=== PATIENT | female | born 2000 | race Caucasian/White ===

== ENCOUNTER → 2021-04-01 11:50 | Outpatient (BNVA) | payer OTHER, SELFPAY | PROVIDERS: Family Provider Family Medicine; PCP Nurse Practitioner Family; Visit Provider Family Medicine | DX: R30.0 Dysuria (principal); R31.9 Hematuria, unspecified; N39.0 Urinary tract infection, site not specified | CPT/HCPCS: 81003; 87077; 87086; 87184 ==

== ENCOUNTER 2022-12-24 08:07 | Outpatient (CLI) | payer OTHER, SELFPAY ==
[2022-12-24] VITALS (17 sets, daily range): BP systolic 104–161; BP diastolic 56–86; PULSE 84–146; RESP 16; TEMP 36.1; O2SAT 99; BMI 24.3
[2022-12-24 08:49] LABS: Protein Urine Neg (Negative); Urine Appearance Clear (CLEAR); Urine Color Yellow (Yellow); pH Urine 5 (5-7)
[2022-12-24 08:50] LABS: Bilirubin Urine 1+ (Negative); Blood Urine Neg (Negative); Glucose Urine UA 1+ (Normal); Ketones Urine 3+ (Negative); Nitrate Urine Negative (Negative); Urobilinogen Urine Norm (Negative)
[2022-12-24 08:52] LABS: Add Urine Culture? No; Bacteria Urine 2+ /hpf; Mucus Urine 1+ /hpf; WBC Urine 0-4 /hpf (0-5)
[2022-12-24 08:53] LABS: Leukocyte Esterase Urine Negative (Negative)
[2022-12-24] MEDS: lactated ringers 1,000 ML 999 ML IV (09:08)
[2022-12-24] MEDS: ondansetron 2 mg/ML SDV 2 mL 4 MG IVP (09:09)
[2022-12-24] MEDS: terbutaline 1 mg/mL INJ 0.25 MG SUBCUT (11:10)
== END 2022-12-24 11:50 | disposition home or self-care (01) ==
LOC: OPOB 08:15 → OBGYN 08:16
PROVIDERS: PCP Nurse Practitioner Family; Visit Provider Family Medicine
DX: O21.9 Vomiting of pregnancy, unspecified (principal); Z3A.00 Weeks of gestation of pregnancy not specified; M54.9 Dorsalgia, unspecified; R10.9 Unspecified abdominal pain
CPT/HCPCS: 36415; 59025; 81001; 96372; 96374; 99211; J2405; J3105; J7120

== ENCOUNTER 2023-03-04 22:47 | Outpatient (CLI) | payer OTHER, SELFPAY ==
[2023-03-04 22:45] VITALS: BMI 27.1
[2023-03-04 22:56] VITALS: BP 143/91; PULSE 100
[2023-03-04 23:12] VITALS: BP 122/76; PULSE 79
[2023-03-05 00:53] VITALS: BP 146/87; PULSE 82
[2023-03-05 01:09] VITALS: BP 130/85; PULSE 76
[2023-03-05 01:26] VITALS: BP 147/96; PULSE 93
[2023-03-05 01:42] VITALS: BP 147/96; PULSE 93; RESP 16
== END 2023-03-05 01:42 | disposition home or self-care (01) ==
LOC: OPOB 22:47 → OBGYN 22:48
PROVIDERS: PCP Nurse Practitioner Family; Visit Provider Family Medicine
DX: O47.9 False labor, unspecified (principal); Z3A.00 Weeks of gestation of pregnancy not specified
CPT/HCPCS: 59025; 99211

== ENCOUNTER 2023-03-05 13:02 | Inpatient (IN) | payer OTHER, SELFPAY ==
[2023-03-05] VITALS (98 sets, daily range): BP systolic 103–144; BP diastolic 59–94; PULSE 71–168; RESP 15–18; TEMP 36.6–37.1; O2SAT 92–100; BMI 27.1
[2023-03-05 09:01] LABS: Protein Urine 1+ (Negative); Specific Gravity, Urine 1.025 (1.005-1.030); Urine Appearance Cloudy (CLEAR); Urine Color Dark Yellow (Yellow); pH Urine 5 (5-7)
[2023-03-05 09:02] LABS: Bilirubin Urine 1+ (Negative); Blood Urine 3+ (Negative); Glucose Urine UA Norm (Normal); Ketones Urine 3+ (Negative); Leukocyte Esterase Urine 2+ (Negative); Nitrate Urine Negative (Negative); Urobilinogen Urine 1 mg/dL (Negative)
[2023-03-05 09:05] LABS: Add Urine Culture? Yes; Bacteria Urine 1+ /hpf; WBC Urine >100 /hpf (0-5)
[2023-03-05] MEDS: HYDROcodone-acetaminophen 5-325 mg Tablet 1 TAB PO (10:04)
--- NOTE | 2023-03-05 12:31 | PM.OPHPUD ---
Labor & Delivery H&P Update Date of Procedure: March 05, 2023 Date H&P Performed: 03/01/23 Admission Diagnosis: 23-year-old 1 para 0 at 39 weeks estimated gestational age presenting with contractions Planned procedure: Spontaneous vaginal delivery Other information: The patient is a otherwise healthy 23-year-old 1 female with an estimated gestational age of 39 weeks and 5 days presenting to the hospital for the second time after having increasingly painful consistent contractions. Her cervix was found to be 1 cm. After discussion with the patient regarding the risks and alternatives, we elected to augment her labor with Cytotec 25 mcg. She was also noted to have a urinalysis consistent with a UTI. On exam there was no CVA tenderness. She did have back pain in the SI joint area with contractions. She received Rocephin 1 g IV when we were still deciding whether she would remain in the hospital or not. She has been on GBS protocol and has been on ampicillin since she began making cervical change. The patient's was unremarkable. Her labs were as follows. Her blood type is A-. Her antibody screen was negative. She passed her glucose screen. She is rubella immune. She is GBS positive. Related Problem List Diagnoses (1) 39 weeks gestation of : (2) UTI (urinary tract infection) during : A&P Assessment and plan (1) 39 weeks gestation of : Spontaneous vaginal delivery is anticipated. Status: Acute (2) UTI (urinary tract infection) during : Treated with Rocephin. We will also be on group B strep protocol. Status: Acute
[2023-03-05 13:16] LABS: Basophils % 0.1 %; Eosinophils % 0.1 %; Hematocrit 30.1 % (37.0-47.0); Hemoglobin 9.7 g/dL (11.5-15.3); Lymphocytes # 0.7 10^3/uL (0.8-4.8); Lymphocytes % 4.8 %; Mean Corpuscular HGB Conc 32.2 g/dL (30.0-36.0); Mean Corpuscular Hemoglobin 27.6 pg (28.0-34.0); Mean Corpuscular Volume 85.8 fl (81-99); Mean Platelet Volume 12.2 fL (7.4-10.4); Monocytes # 0.7 10^3/uL (0.2-0.9); Neutrophils # 12.39 10^3/uL (1.8-7.7); Neutrophils % 89.2 %; Nucleated Red Blood Cells % 0 %; Platelet Count 218 10^3/cmm (130-400); Red Blood Count 3.51 10^6/uL (4.1-5.3); Red Cell Distribution Width 12.7 % (12.1-15.1); White Blood Count 13.9 10^3/uL (4.0-10.0)
--- NOTE | 2023-03-05 13:51 | P.ANESASSM_ITS ---
Pre-Anesthetic Assessment Height/Weight: Height 1.57 m Weight 67.132 kg Temp Pulse Resp BP 98.4 F 84 16 127/79 03/05/23 13:49 03/05/23 13:49 03/05/23 13:06 03/05/23 13:49 Familial anesthetic complications: none Was Beta Martha taken within 24 hours: N/A Was Clonidine taken within 24 hours: N/A Social No alcohol and No tobacco Exam alert, oriented x 3, clear to auscultation bilaterally and regular rate & rhythm Airway Submandibular: within normal limits Cervical ROM: within normal limits Mallampati: Class II Dentition: full History/ROS No significant history except as noted Anesthetic Plan ASA status: 2 Anesthesia: Regional (specify below) (Labor epidural) Medications/Allergies Allergies Allergy/AdvReac Type Severity Reaction Status Date / Time No Known Allergies Allergy Verified 04/07/21 13:42 [facility] Anesthesia Female Reproductive History : 1 Data Anesthesia 03/05/23 12:58 Short CBC 03/05/23 Range/Units 12:58 WBC 13.9 H (4.0-10.0) 10^3/uL Hgb 9.7 L (11.5-15.3) g/dL Hct 30.1 L (37.0-47.0) % MCV 85.8 (81-99) fl Plt Count 218 (130-400) 10^3/cmm Neut % (Auto) 89.2 % Neut # (Auto) 12.39 H (1.8-7.7) 10^3/uL Urine 03/05/23 Range/Units 08:13 Urine Color Dark yellow (Yellow) Urine Appearance Cloudy A (CLEAR) Urine pH 5 (5-7) Ur Specific [place] 1.025 (1.005-1.030) Urine Protein 1+ H (Negative) Urine Glucose (UA) Norm (Normal) Urine Ketones 3+ H (Negative) Urine Nitrate Negative (Negative) Urine Bilirubin 1+ H (Negative) Ur Leukocyte Esterase 2+ H (Negative) Urine RBC 5-10 H (0-2) /hpf Urine WBC >100 H (0-5) /hpf Cardiac Studies: No Data to Display
[2023-03-05] MEDS: miSOPROStol 100 mcg tablet 25 MCG VAGINAL ×2 (14:44→20:39)
[2023-03-05] MEDS: fentaNYL 50 mcg/mL INJ 2mL IVP ×2 (16:34→18:43)
[2023-03-05] MEDS: lactated ringers 1,000 ML 999 ML IV ×2 (17:45→19:10)
[2023-03-05] MEDS: ampicillin 2,000 MG in sodium chloride 0.9% (plus) 50 ML 100 MG IV (17:45)
--- NOTE | 2023-03-05 19:44 | P.ANES_ITS ---
Anesthesia Procedures Procedure/Date: 03/05/23 epidural Procedure Narrative: epidural complete, bolus given, epidural pump initiated with SCUBA DIVE TRAINING INSTRUCTOR education given, vitals taken during procedure and satisfactory throughout, patient admits to decrease pain, report of procedure to OB RN Epidural: Time Out Performed: Yes Consents Signed: Procedure Consent Consent: requested by attending/covering physician, from patient, risks and benefits reviewed and patient agrees to proceed Lumbar Level: L3-L4 Epidural position: sitting Epidural procedure: sterile prep of area, 1% lidocaine to numb the area (3 mL), 18 g needle, negative for paresthesia passed, neg for paresthesia, test dose given, 1.5% xylocaine 1:200k epi (5 mL), 0.2% Ropivacaine bolus ml (5 mL), placed PCEA, no systemic response, sterile dressing applied, L.U.D. no apparent complications and 0.2% Ropiavacaine @ mls/hr (13 mL/hr)
--- NOTE | 2023-03-05 22:46 | PC.NURSE ---
This nurse observed bleeding coming through dressing to belly band and turn sheet at this epidural check. Anesthesia was notified.
[2023-03-05] MEDS: ampicillin 1,000 MG in sodium chloride 0.9% (plus) 50 ML 100 MG IV (23:28)
[2023-03-05] MEDS: ondansetron 2 mg/ML SDV 2 mL 4 MG IVP (23:31)
[2023-03-05] MEDS: morphine 4 mg/mL SDV 1 mL 8 MG IM (23:57)
[2023-03-05] MEDS: promethazine 25 mg/mL SDV 1 mL IM (23:58)
[2023-03-06] VITALS (83 sets, daily range): BP systolic 109–138; BP diastolic 55–77; PULSE 79–144; RESP 16; TEMP 36.3–38.2; O2SAT 85–99
[2023-03-06] MEDS: dextrose 5%-lactated ringers 1,000 ML 125 ML IV (00:37)
[2023-03-06] MEDS: ampicillin 1,000 MG in sodium chloride 0.9% (plus) 50 ML 100 MG IV (03:24)
[2023-03-06] MEDS: lidocaine 2% INJ 20 mL INJECTION (05:22)
--- NOTE | 2023-03-06 05:39 | P.PCNOB_ITS ---
Delivery Note: Date of delivery: March 06, 2023 Pre-delivery diagnoses: 23-year-old 1 at 39 weeks estimated gestational age Post-delivery diagnoses: Status post vacuum-assisted vaginal delivery Procedure: Vacuum-assisted vaginal delivery Delivering Physician: Shemar Parra Estimated blood loss (mL): 200 Pre-Delivery Course: The patient presented to the hospital for the second time in 2 days complaining of consistent contractions happening about every 5 minutes. Despite her consistent painful contractions she is not making cervical change. We made a joint decision to augment her labor with Cytotec. She received Cytotec 25 mcg x 2 per vagina. An epidural was placed. Spontaneous rupture of membranes occurred. She progressed to complete. heart tones did demonstrate tachycardia with a baseline around 180 bpm. She continued to show good short- term long-term variability. She had intermittent accelerations as well. Delivery: DELIVERY: The patient progressed to an anterior lip which resolved with pushing. Due to the tachycardia I made the decision to begin pushing. After pushing for over an hour and a half, the mother was beginning fatigue. Persistent tachycardia was also noted. I elected to assist her delivery with a vacuum. A Kiwi vacuum was used to assist in delivery. There were 3 pushes the vacuum was applied with a pressure always in the green zone around 550 mmHg. There were no pop offs. The vacuum pressure was released between contractions. She delivered a female with a weight of 7 pounds 10 ounces with Apgars of 8, 9. The baby was delivered from the CASTRO position and placed on the mother's abdomen. The vacuum was removed as the head was being delivered. The cord was then clamped and cut. There was no nuchal cord. There was no meconium. The placenta and 3 vessel cord were delivered intact shortly thereafter. The perineum and vaginal vault were carefully examined. She was found to have a lef t inferior vaginal wall/labia majora tear that was repaired with 3-0 Vicryl. She was also noted to have a right anterior labia minora tear which was also repaired with 3-0 Vicryl. Both the mother and the baby were in stable condition. Post-Delivery Status: Good A&P Assessment and plan (1) 39 weeks gestation of : (2) Vacuum-assisted vaginal delivery: I anticipate routine care. Coding Level of Care Code Acute Code for Chg Fwd Diagnoses 39 weeks gestation of Z3A.39 Vacuum-assisted vaginal delivery Z37.9
--- NOTE | 2023-03-06 07:22 | ANE.PACU2 ---
Inpatient post-anesthesia follow up: Airway intact: Yes Vital signs: Temperature 98.9 F Pulse Rate 86 Respiratory Rate 16 Blood Pressure 112/68 Pulse Oximetry 97 Oxygen Delivery Me thod Room Air Oxygen Flow Rate Fraction of Inspir ed Oxygen Hydration adequate: Yes Nausea and vomiting: No Pain level: 2 Mental status: Baseline
[2023-03-06] MEDS: benzocaine-menthol 78 gm Canister 1 SPRAY TOPICAL (09:08)
[2023-03-06] MEDS: prenatal vitamin Capsule 1 CAP PO (09:09)
[2023-03-06] MEDS: docusate sodium 100 mg Capsule PO ×2 (09:09→18:58)
[2023-03-06] MEDS: ibuprofen 800 mg tablet PO ×2 (09:09→15:10)
[2023-03-06 18:31] LABS: Hematocrit 27.6 % (37.0-47.0); Hemoglobin 8.7 g/dL (11.5-15.3); Mean Corpuscular HGB Conc 31.5 g/dL (30.0-36.0); Mean Corpuscular Hemoglobin 27.6 pg (28.0-34.0); Mean Corpuscular Volume 87.6 fl (81-99); Mean Platelet Volume 12.1 fL (7.4-10.4); Platelet Count 200 10^3/cmm (130-400); Red Blood Count 3.15 10^6/uL (4.1-5.3); Red Cell Distribution Width 13.2 % (12.1-15.1); White Blood Count 12.6 10^3/uL (4.0-10.0)
--- NOTE | 2023-03-06 19:50 | PC.NURSE ---
THIS RN SET UP SITZ BATH IN PATIENTS ROOM, PATIENT STATED SHE DID NOT WANT IT THAT IT DID NOT HELP MUCH THIS MORNING. PT STATED SHE WOULD LIKE TO TRY IN THE MORNING BEFORE SHE IS DISCHARGED. PATIENT ASKED FOR ICE PACK INSTEAD. Wing JACKSON RN
[2023-03-07] VITALS (7 sets, daily range): BP systolic 112–150; BP diastolic 53–82; PULSE 58–107; RESP 14–16; TEMP 35.6–36.6; O2SAT 95–98
[2023-03-07] MEDS: HYDROcodone-acetaminophen 5-325 mg Tablet PO (01:16)
--- NOTE | 2023-03-07 07:20 | P.DS_ITS ---
Discharge Providers QUALITY ASSURANCE MONITOR CHASSIS Date of Admission: 03/05/23 13:02 Date of Discharge: 03/07/23 Attending Provider at Admission: Shemar Parra MD Attending Provider at Discharge: Shemar Parra MD Primary Care Provider: Suad Trejo APN Diagnoses at Discharge Discharge Diagnosis (1) 39 weeks gestation of : Status: Acute (2) Vacuum-assisted vaginal delivery: Status: Acute Reason for Visit Reason for Visit: contractions Hospital Course Hospital Course The patient presented to the hospital with contractions. She was noted to have a urinary tract infection. She was treated with Rocephin. Group B strep protocol was initiated. Her labor was augmented with Cytotec. She had spontaneous rupture membranes. She had an epidural placed. She progressed to complete and pushed for about an hour and a half. The baby was tachycardic. A vacuum was used to assist in delivery of the baby. She had 2 intravaginal tears. Her course was unremarkable. Her bleeding was limited. She chose to bottlefeed. She did have some difficulty with pain during the first night. Otherwise there are no problems. Information Peripartum Data: Delivery Method: Vaginal Physical Exam Narrative: The patient is alert. She appears comfortable. Her heart has a regular rate and rhythm with no murmurs appreciated. Lungs are clear to auscultation bilaterally. Her fundus is firm and below the umbilicus. Urinary Catheter Management: Whitney: Cath Placed During This Visit: yes, but has since been removed by the nurse Reason for Continuing Indwelling Catheter: Accurate Measurement of Urinary Output in Critically Ill Patients Urinary Catheter Date of Insertion: 03/05/23 Urinary Catheter Time of Insertion: 19:56 Date Urinary Catheter Removed: 03/06/23 Time Urinary Catheter Discontinued: 03:30 Discharge Data Studies Completed and Pending Pending at discharge Category Date Time Status Antibody Identification Routine Lab 03/05/23 13:06 Results Retype for Patiets ABO/Rh Routine Lab 03/06/23 08:27 Ordered Rho D Immune Globulin Routine Lab 03/05/23 13:06 Results Type and Screen Routine Lab 03/06/23 06:27 Results Urine Culture Stat Lab 03/05/23 08:13 Results Laboratory Results WBC 12.6 10^3/uL (4.0-10.0) H 03/06/23 18:00 RBC 3.15 10^6/uL (4.1-5.3) L 03/06/23 18:00 Hgb 8.7 g/dL (11.5-15.3) L 03/06/23 18:00 Hct 27.6 % (37.0-47.0) L 03/06/23 18:00 MCV 87.6 fl (81-99) 03/06/23 18:00 MCH 27.6 pg (28.0-34.0) L 03/06/23 18:00 MCHC 31.5 g/dL (30.0-36.0) 03/06/23 18:00 RDW 13.2 % (12.1-15.1) 03/06/23 18:00 Plt Count 200 10^3/cmm (130-400) 03/06/23 18:00 MPV 12.1 fL (7.4-10.4) H 03/06/23 18:00 Neut % (Auto) 89.2 % 03/05/23 12:58 Lymph % (Auto) 4.8 % 03/05/23 12:58 [place] % (Auto) 5.0 % 03/05/23 12:58 Eos % (Auto) 0.1 % 03/05/23 12:58 Baso % (Auto) 0.1 % 03/05/23 12:58 Neut # (Auto) 12.39 10^3/uL (1.8-7.7) H 03/05/23 12:58 Lymph # (Auto) 0.7 10^3/uL (0.8-4.8) L 03/05/23 12:58 [place] # (Auto) 0.7 10^3/uL (0.2-0.9) 03/05/23 12:58 Eos # (Auto) 0.0 10^3/uL (0.0-0.8) 03/05/23 12:58 Baso # (Auto) 0.0 10^3/uL (0.0-0.1) 03/05/23 12:58 Nucleated RBC % (auto) 0 % 03/05/23 12:58 Nucleated RBCs # 0.0 /100WBC 03/05/23 12:58 Urine Color Dark yellow (Yellow) 03/05/23 08:13 Urine Appearance Cloudy (CLEAR) A 03/05/23 08:13 Urine pH 5 (5-7) 03/05/23 08:13 Ur Specific [place] 1.025 (1.005-1.030) 03/05/23 08:13 Urine Protein 1+ (Negative) H 03/05/23 08:13 Urine Glucose (UA) Norm (Normal) 03/05/23 08:13 Urine Ketones 3+ (Negative) H 03/05/23 08:13 Urine Blood 3+ (Negative) H 03/05/23 08:13 Urine Nitrate Negative (Negative) 03/05/23 08:13 Urine Bilirubin 1+ (Negative) H 03/05/23 08:13 Urine Urobilinogen 1 mg/dL (Negative) H 03/05/23 08:13 Ur Leukocyte Esterase 2+ (Negative) H 03/05/23 08:13 Urine RBC 5-10 /hpf (0-2) H 03/05/23 08:13 Urine WBC >100 /hpf (0-5) H 03/05/23 08:13 Ur Squamous Epith Cells 5-10 /hpf (0-5) H 03/05/23 08:13 Amorphous Sediment Not Reportable 03/05/23 08:13 Urine Bacteria 1+ /hpf (NONE) H 03/05/23 08:13 Blood Type A Negative 03/05/23 13:06 Rho(D) Type Negative 03/05/23 13:06 Antibody Screen Positive 03/05/23 13:06 Antibody Identification Anti-D 03/05/23 13:06 Screen Negative (Negative) 03/06/23 18:00 Vitals Last Vital Signs Temp 97.9 F 03/07/23 06:20 Pulse 95 03/07/23 06:20 Resp 15 03/07/23 06:20 BP 119/53 03/07/23 06:20 Pulse Ox 95 03/07/23 06:20 O2 Del Method Room Air 03/07/23 06:20 Discharge Plan Discharge Patient Disposition: Home Prescriptions: New ibuprofen 800 mg Tablet 800 mg PO TID Qty: 45 0RF hydrocodone-acetaminophen 5-325 mg Tablet 1 tab PO Q8H PRN (Reason: Moderate To Severe Pain) Qty: 5 0RF -U 106.5-1 mg Capsule 1 cap PO DAILY Qty: 90 0RF nitrofurantoin macrocrystal 100 mg capsule 100 mg PO BID 7 Days Qty: 14 0RF Rx Instructions: must administer with a meal/food Discharge Orders: Discharge Order (Routine); Ordered 03/07/23 Ordered By: Shemar Parra Referrals: Shemar Parra MD [Physician] - 6 Weeks Discharge Diet: Usual diet Discharge Activity: Limit activity as instructed Patient Instructions: Depression (DC), Bleeding (DC), Preeclampsia and Eclampsia After Delivery (GEN), OB Discharge Report, OB Food/Drug Interaction Guide, OB Care at Home, Opioid Safety, OB Vaginal Deliveries, Abnormal Bleeding Discharge Attestations QUALITY ASSURANCE MONITOR CHASSIS Time Spent in Discharge Care*: less than 30 min Coding Level of Care Code Acute Code for Chg Fwd Diagnoses 39 weeks gestation of Z3A.39 Vacuum-assisted vaginal delivery Z37.9
[2023-03-07] MEDS: docusate sodium 100 mg Capsule PO (08:29)
[2023-03-07] MEDS: prenatal vitamin Capsule 1 CAP PO (08:29)
[2023-03-07] MEDS: ibuprofen 800 mg tablet PO (08:29)
== END 2023-03-07 10:05 | disposition home or self-care (01) | DRG 806 ==
LOC: OPOB 13:03 → OBGYN 13:03
PROVIDERS: Admitting Provider Family Medicine; PCP Nurse Practitioner Family; Visit Provider Family Medicine
DX: O75.3 Other infection during labor (principal); N39.0 Urinary tract infection, site not specified; Z37.0 Single live birth; Z3A.39 39 weeks gestation of pregnancy; O99.824 Streptococcus B carrier state complicating childbirth; O76 Abnormality in fetal heart rate and rhythm complicating labor and delivery; O70.0 First degree perineal laceration during delivery
CPT/HCPCS: 36415; 36430; 51702; 59025; 59409; 80503; 81001; 85025; 85027; 85460; 86850; 86870; 86900; 87086; 90384; 96372; 96374; 96376; 99211; J0290; J2270; J2405; J2550; J2795; J3010; J7120; J7121

== ENCOUNTER 2025-03-23 19:00 | Inpatient (IN) | payer MEDICAID, SELFPAY ==
[2025-03-23] VITALS (14 sets, daily range): BP systolic 96–124; BP diastolic 53–80; PULSE 66–105; RESP 16; BMI 27.1
[2025-03-23 19:30] LABS: Hematocrit 30.2 % (36-47); Hemoglobin 9.80 g/dL (11.27-16.99); Mean Corpuscular HGB Conc 32.5 g/dL (30-55); Mean Corpuscular Hemoglobin 26.6 pg (27-33); Mean Corpuscular Volume 81.8 fl (85-98); Nucleated Red Blood Cells % 0 %; Platelet Count 231 10^3/cmm (157-399); Red Blood Count 3.69 10^6/uL (3.85-5.65); White Blood Count 7.91 10^3/uL (3.29-11.43)
[2025-03-23] MEDS: morphine 4 mg/mL SDV 1 mL 8 MG IM (23:58)
[2025-03-23] MEDS: promethazine 25 mg/mL SDV 1 mL IM (23:59)
[2025-03-24] VITALS (111 sets, daily range): BP systolic 89–145; BP diastolic 50–82; PULSE 59–136; RESP 16–17; TEMP 36.9; O2SAT 89–100; BMI 27.1
--- OUTSIDE RECORDS SUMMARY | 2025-03-24 02:47 | XMS_ITS | Patient Health Record ---
Author Organization [facility] Address [address] [place] [address] Care Team Providers Care Machine Wedger Name Role Phone Bria Trejoe Primary Care Provider SUAD TREJO Unavailable Unavailable Allergies No Known Allergies Reason For Referral No Information Medications Medication SIG (Take, Route, Fr equency, Duration) Notes Start Date End Date Status Phentermine HCl 37.5 MG 1/2 tablet befor e breakfast Orally Once a day 08/30/2023 Active Social History Tobacco Use: Social History Observation Description Date Details (start date - stop date) Never Smoker NA - NA xTobacco Use/Smoking Question Answer Notes Are you a nonsmoker Alcohol Screen (Audit-C) Question Answer Notes Did you have a drink containing alcohol in the p ast year? No Points 0 Interpretation Negative PHQ-9 Question Answer Notes Little interest or pleasure in doing things Not at all Feeling down, depressed, or hopeless Not at all Trouble falling or staying asleep, or sleeping t oo much Not at all Feeling tired or having little energy Not at all Poor appetite or overeating Not at all Feeling bad about yourself, or that you are a failure, or have let yourself or your family down Not at all Trouble concentrating on thi ngs, such as reading the newspaper or watching television Not at all Moving or speaking so slowly that other people could have noticed. Or the opposite ? being so fidgety or restless that you have been moving around a lot more than usual Not at all Thoughts that you would be b lissa off , or of hurting yourself in some way Not at all Total Score 0 Section Notes: 07/25/23 PHQ9 10/31/23 PHQ9 Plan Of Treatment No Information Insurance Providers Payer Name Payer Address Payer Phone Subscriber Number Group Number Insured Name Patient Relationship to Insured Coverage Start Date Coverage End Date [employer] [address] [facility] [place] [address] [id number] Tigist Delaney Self - patient is the insured
--- OUTSIDE RECORDS SUMMARY | 2025-03-24 02:48 | XMS_ITS | Patient Health Record ---
Author Organization [facility] Address [address] [place] [address] Support Name Relationship Address Phone EARL GOOD Emergency Contact [address] [place] [address] JIMMY ELLIOTT Guarantor Unknown [phone] Allergies No Known Allergies Reason For Referral No Information Medications Medication SIG (Take, Route, Frequency, Duration) Notes Start Date End Date Status TriNessa (28) 0.18/0.215/0.25 MG-35 MCG 1 tablet Orally Once a day; Duration: 84 days phoned to [facility] [phone] 01/01/2020 Not-Taking Tri-Sprintec 0.18/0.215/0.25 MG-35 MCG TAKE 1 TABLET BY MOUTH EVERY DAY; Duration: 84 Not-Taking Immunizations Vaccine Route Administration Date Status Comme nts HPV (9-valent) IM Intramuscular 03/25/2021 Administered Social History Tobacco Use: Social History Observation Description Date Details (start date - stop date) Never Smoker NA - NA Tobacco Use/Smoking Question Answer Notes Are you a nonsmoker Plan Of Treatment Future Test Test Name Order Date Herpes Simplex HSV Type 2-Specific Ab, I gG 08/29/2018 Insurance Providers Payer Name Payer Address Payer Phone Subscriber Number Group Number Insured Name Patient Relationship to Insured Coverage Start Date Coverage End Date Tal [address] [place] [phone] [id number] JIMMY ELLIOTT Child - Insured has Financial Responsibility Medical (General) History Surgical History Surgery Date(Month/Year) tonsillectomy and adenoidectomy 2001 bladder
--- OUTSIDE RECORDS SUMMARY | 2025-03-24 02:48 | XMS_ITS | Data Portability ---
Author Organization [place] - [facility] Address [address] [facility] [address] [place] [address] Assessment No assessment recorded. Plan of Treatment Reminders Order Date Submit Date Provider Last Modified By Organization Details Last Modified Time Details Appointments RETURN OB 2024 01:50P M Shemar Parra MD Not available Not available Not available Lab streptoco ccus group B, culture, unspecifi ed specimen 2024 025 [facility], [address] [place] [address], [facility] [address] [place], [address], 03/02/2025 08:51:04 Referral None recorded. Procedures None recorded. Surgeries None recorded. Imaging None recorded. Medication Orders None recorded. Patient TargetsNo targets recorded. Patient InstructionsNo instructions recorded. Reason for Referral None Reported. Results Created Date Observation Date Name Description Value Unit Range Abnormal Flag Note LastModifiedBy Organization Detail LastModifiedTime 02/28/20 25 03/02/2025 STREP TOCOC CUS, GROUP B CULTU RE streptococcu s, group B culture SEE NOTE STREP TOCOC CUS, GROUP B CULTU RE Micro Numbe r: [id number] Test Statu s: Final Speci men Sourc e: Vagin al/an orect al Speci men Quali ty: Adequ ate Resul t: No group B Strep tococ cus isola haresh Note per CDC guide lines optim al recov jorge alberto is achie jordin by swabb ing both the lower vagin a and rectu m (thro ugh the anal sphin cter) . Not Available [facility] [address], [place], [address], 03/02/2025 08:51:04 Result Notes None recorded. Problems Name Problem SNOMED Code Status Onset Date Resolution Date Notes Provider Name and Address Organization Details Recorded Time Allergic rhinitis 47352262 [facility] 2023 [facility] 14:58:57 Normal pregnanc y in multigra mao 77898666509 4106 Active 2024 [facility] 5 14:59:16 Normal pregnanc y in multigra mao 04493176327 4106 Active 2024 [facility] 5 14:59:17 RhD negative 540980087 Active 2022 RhoGam injectio n given today [facility] 5 15:01:40 RhD negative 346909247 Completed 2022 RhoGam injectio n given today Shemar Parra MD [address] [place] [address], [phone] , [facility] 3 09:49:49 Administ ration of diphther ia, pertussi s, and tetanus vaccine Completed 2022 TDaP injectio n given today Shemar Parra MD [address] [place] [address], [phone], [facility] 3 09:49:49 Pregnanc y 32893641 Completed 202204/11/2023 [facility] 5 14:59:08 Restless legs 84886517 Completed Shemar Parra MD [address] [place] [address], [phone], [facility] 09:49:49 Problem Notes None recorded. Procedures Surgical History Date Name Laterality Status Provider Name and Address Organization Details Recorded Time 08/12/20 [facility] 14:45:44 08/12/20 sampling of cervix for Papanicolaou smear [facility] 14:46:09 Imaging Results None recorded. Procedure Notes None recorded. Medical Equipment None Reported. Allergies No known drug allergies Medications Name Sig Start Date Stop Date Status Note LastModified by Organization Details LastModified Time amoxicill in 500 mg capsule TAKE 1 CAPSULE BY MOUTH TWICE DAILY FOR 10 DAYS 04/11 completed Not Available Not Available Not Available ibuprofen 800 mg tablet TAKE 1 TABLET BY MOUTH THREE TIMES DAILY 04/11 completed Not Available Not Available Not Available ofloxacin 0.3 % eye drops INSTILL 1 DROP INTO AFFECTED EYE(S) BY OPHTHALM IC ROUTE 6 TIMES PER DAY for 2 days, then 1 drop into affected eye 4 times daily 11/21 completed Not Available Not Available Not Available hydrocodo ne 5 mg-acetam inophen 325 mg tablet TAKE 1/2 TABLET TO 1 TABLET BY MOUTH EVERY 6 HOURS NEEDED FOR PAIN. 08/16 completed Not Available Not Available Not Available ondansetr on HCl 4 mg tablet TAKE 1 TABLET BY MOUTH EVERY 6 TO 8 HOURS NEEDED active Not Available Not Available No t Available penicilli n V potassium 500 mg tablet TAKE 1 TABLET BY MOUTH FOUR TIMES DAILY UNTIL GONE 08/16 completed Not Available Not Available Not Available phentermi ne 37.5 mg tablet TAKE 1/2 TABLET BY MOUTH EVERY DAY BEFORE BREAKFAS T 08/16 completed Not Available Not Available Not Available famotidin e 20 mg tablet TAKE 1 TABLET BY MOUTH TWICE DAILY NEEDED active Not Available Not Available No t Available nitrofura ntoin macrocrys saeed 100 mg capsule 04/11 completed Not Available Not Available Not Available methylpre dnisolone 4 mg tablets in a dose pack FOLLOW PACKAGE DIRECTIO NS 08/16 completed Not Available Not Available Not Available fluticaso ne propionat e 50 mcg/actua tion nasal spray,jordan pension SHAKE LIQUID AND USE 1 SPRAY IN EACH NOSTRIL EVERY DAY 08/16 completed Not Available Not Available Not Available - U 106.5 mg-1 mg capsule TAKE ONE CAPSULE BY MOUTH DAILY 04/11 completed Not Available Not Available Not Available nitrofura ntoin monohydra te/macroc rystals 100 mg capsule TAKE 1 CAPSULE BY MOUTH EVERY 12 HOURS FOR 7 DAYS 08/16 completed Not Available Not Available Not Available Vitamin qd 10/24 completed 0; Recorded 10/15/19 23 11:22AM by Shonda Delaney, Office Visit; Not Available Not Available Not Available RhoGAM Ultra-Fabián tered PLUS 1,500 unit (300 mcg) intramusc ular syringe Inject 1 syringe by intramus cular route. 2024 active Injectio n given from provider stock Not Available Not Available Not Available Vitals Date Recorded Body height Body mass index (BMI) Body weight Body temperature Heart rate Respiratory rate Oxygen saturation Oxygen saturation in Arterial blood by Pulse oximetry Systolic blood pressure Diastolic blood pressure Systolic blood pressure Diastolic blood pressure Provider Name and Address Organization Details Last Updated DateTime 5 157.48 cm 26.7 kg/m2 66088.4 9 g 98.8 [degF] 90 /min 18 /min 98 % 98 % 144 mm[Hg] 80 mm[Hg] 118 mm[Hg] 74 mm[Hg] GILMA FIGUEROA [facility] 5 16:57:26 Date Recorded Body height Body mass index (BMI) Body weight Oxygen saturation Oxygen saturation in Arterial blood by Pulse oximetry Heart rate Respiratory rate Body temperature Systolic blood pressure Diastolic blood pressure Provider Name and Address Organization Details Last Updated DateTime 5 157.48 cm 26.2 kg/m2 77865.8 1 g 98 % 98 % 68 /min 18 /min 98.4 [degF] 122 mm[Hg] 74 mm[Hg] SINCERE MERRITT [facility] 5 10:11:54 Date Recorded Body height Body mass index (BMI) Body weight Oxygen saturation Oxygen saturation in Arterial blood by Pulse oximetry Heart rate Respiratory rate Body temperature Systolic blood pressure Diastolic blood pressure Provider Name and Address Organization Details Last Updated DateTime 5 157.48 cm 26.4 kg/m2 22687.4 g 97 % 97 % 74 /min 18 /min 98 [degF] 112 mm[Hg] 62 mm[Hg] SINCERE MERRITT [facility] 5 16:48:09 Date Recorded Body height Body mass index (BMI) Body weight Oxygen saturation Oxygen saturation in Arterial blood by Pulse oximetry Heart rate Respiratory rate Body temperature Systolic blood pressure Diastolic blood pressure Provider Name and Address Organization Details Last Updated DateTime 5 157.48 cm 26.3 kg/m2 32621.3 g 99 % 99 % 84 /min 16 /min 97.9 [degF] 120 mm[Hg] 76 mm[Hg] GILMA FIGUEROA [facility] 5 15:04:53 Date Recorded Body height Body mass index (BMI) Body weight Heart rate Oxygen saturation Oxygen saturation in Arterial blood by Pulse oximetry Body temperature Respiratory rate Systolic blood pressure Diastolic blood pressure Provider Name and Address Organization Details Last Updated DateTime 5 157.48 cm 26.7 kg/m2 25114.4 9 g 100 /min 98 % 98 % 98.3 [degF] 16 /min 118 mm[Hg] 70 mm[Hg] GILMA FIGUEROA [facility] 5 15:09:15 Social History Question Answer Notes LastModified by Organizat ion Details LastModified Time Tobacco Smoking Status Never Smoker SINCERE gallardo [facility] 04/11/2023 09:26:19 Are You Blind Or Do You Have Difficulty Seeing? No Information not available 12/18/2024 Are You Deaf Or Do You Have Serious Difficulty Hearing? No Information not available 12/18/2024 What Was The Date Of Your Most Recent Tobacco Screening? 02/13/2025 Information not available 02/13/2025 What Is Your Relationship Status? Information not available 12/18/2024 Are You Sexually Active? Yes Information not available 12/18/2024 Do You Have Difficulty Walking Or Climbing Stairs? No Information not available 12/18/2024 Sex: Unknown Functional Status Question Answer Note LastModified by Organizat ion Details LastModified Time Do you use any illicit or recreational drugs? No Information not available 12/18/2024 Do you or have you ever used any other forms of tobacco or nicotine? No Information not available 12/18/2024 What is your level of alcohol consumption? None Information not available 12/18/2024 Are you currently employed? Yes Information not available 12/18/2024 Do you have transportation difficulties? No Information not available 12/18/2024 Are you able to walk? YESWOREST Information not available 12/18/2024 Do you have difficulty doing errands alone? No Information not available 12/18/2024 Are you able to care for yourself? Yes [email or web address] Information not available 04/11/2023 What is your occupation? nurse Information not available 02/13/2025 Do you have difficulty dressing or bathing? No Information not available 12/18/2024 Mental Status Question Answer Note LastModified by Organization D etails LastModified Time Do you have difficulty concentrating, remembering or making decisions? No Information no t available 12/18/2024 Family History Relationship Description Onset Age of this Age Resolved Age Notes LastModified by Organization Details LastModified Time Father No current problems or disability [email or web address] Not available 0 04/11/2023 09:26:07 Mother No current problems or disability [email or web address] Not available 0 04/11/2023 09:26:07 Medical History No medical history recorded. Gynecological History Statement/Question Response Abnormal Pap N Date of Last Pap Smear 08/12/2022 Obstetrics History GPAL:G 2 P 1 0 0 1 Type Value Full Term 1 Living 1 Total 2 Immunizations Vaccine Type Date Status Note Provider Nam e and Address Organization Details Recorded Time HPV9 6 completed GILMA gallardo [facility] 02/16/2023 14:27:36 IPV 9 completed GILMA HENRY null, [facility] 02/16/2023 14:27:36 IPV 4 completed GILMA HENRY null, [facility] 02/16/2023 14:27:36 IPV 9 completed GILMA HENRY null, [facility] 02/16/2023 14:27:36 IPV 0 completed GILMA HENRY null, [facility] 02/16/2023 14:27:36 MMR 0 completed GILMA HENRY null, [facility] 02/16/2023 14:27:37 MMR 4 completed GILMA HENRY null, [facility] 02/16/2023 14:27:37 Tdap 2 completed GILMA HENRY null, [facility] 02/16/2023 14:27:37 varicella 1 completed GILMA HENRY null, [facility] 02/16/2023 14:27:37 Hep B, unspecified formulation 9 completed GILMA HENRY null, [facility] 02/16/2023 14:27:37 Hep B, unspecified formulation 9 completed GILMA HENRY null, [facility] 02/16/2023 14:27:37 Hep B, unspecified formulation 9 completed GILMA HENRY null, [facility] 02/16/2023 14:27:37 Hib (PRP-T) 0 completed GILMA HENRY null, [facility] 02/16/2023 14:27:37 Hib (PRP-T) 9 completed GILMA HENRY null, [facility] 02/16/2023 14:27:37 Hib (PRP-T) 9 completed GILMA HENRY null, [facility] 02/16/2023 14:27:37 Hib (PRP-T) 0 completed GILMA HENRY null, [facility] 02/16/2023 14:27:37 meningococcal MCV4P 2 completed GILMA HENRY null, [facility] 02/16/2023 14:27:37 meningococcal MCV4P 6 completed GILMA HENRY null, [facility] 02/16/2023 14:27:37 DTaP 0 completed GILMA HENRY null, [facility] 02/16/2023 14:27:37 DTaP 9 completed GILMA HENRY null, [facility] 02/16/2023 14:27:37 DTaP 4 completed GILMA HENRY null, [facility] 02/16/2023 14:27:37 DTaP 9 completed GILMA HENRY null, [facility] 02/16/2023 14:27:37 DTaP 0 completed GILMA HENRY null, [facility] 02/16/2023 14:27:37 Influenza, split virus, quadrivalent, PF 9 completed GILMA HENRY null, [facility] 02/16/2023 14:27:37 Tdap 3 completed Shemar Parra MD [address] [place] [address], [phone], [facility] 01/21/2023 08:16:36 Past Encounters Encounter ID Performer Location Encounter Start Date Encounter Closed Date Diagnosis/Indication Diagnosis SNOMED-CT Code Diagnosis ICD10 Code Diagnosis Note [id number] Shemar Parra MD [facility] ([facility]) [address] [place] [id number] 12/14/2022 12:13:31 12/19/2022 16:33:02 Normal 03780252 Z34.90 [id number] Shemar Parra MD [facility] ([facility]) [address] [place] [id number] 5 12/26/2022 17:51:26 12/27/2022 12:03:31 Normal 70915020 Z34.03 RhD negative 982354774 Z 01.83 [id number] Shemar Parra MD [facility] ([facility]) [address] [place] [id number] 01/05/2023 16:55:21 01/11/2023 13:33:33 Normal 99300256 Z34.03 Gestation period, 31 weeks 39973931 Z3A.31 [id number] Shemar Parra MD [facility] ([facility]) [address] [place] [id number] 5 01/11/2023 13:44:56 01/11/2023 14:29:05 [id number] Shemar Parra MD [facility] ([facility]) [address] [place] [id number] 5 01/17/2023 11:45:13 01/17/2023 18:57:24 Normal 24255494 Z34.03 Gestation period, 32 weeks 7361132 Z3A.32 Heartburn 91962580 R12 [id number] Shemar Parra MD [facility] ([facility]) [address] [place] [id number] 5 01/18/2023 17:02:54 01/25/2023 15:03:36 [id number] Z33.1 [id number] Shemar Parra MD [facility] ([facility]) [address] [place] [id number] 5 02/06/2023 10:57:08 02/06/2023 18:33:58 Normal in primigravida 4916504329 47014 Z34.03 Gestation period, 35 weeks 15625961 Z3A.35 Pain in throat 848118446 R07.0 [id number] Shemar Parra MD [facility] ([facility]) [address] [place] [id number] 5 02/16/2023 14:14:18 02/16/2023 16:08:24 Normal 69885975 Z34.03 Gestation period, 37 weeks 03101513 Z3A.37 [id number] Shemar Parra MD [facility] ([facility]) [address] [place], [place] [phone] 5 02/22/2023 14:13:31 02/22/2023 16:09:34 [id number] Z33.1 Gestation period, 38 weeks 24679414 Z3A.38 [id number] Shemar Parra MD [facility] ([facility]) [address] [place] [id number] 5 02/27/2023 16:42:33 03/10/2023 08:11:22 70977800 Z33.1 Gestation period, 38 weeks 90201827 Z3A.38 [id number] Shemar Parra MD [facility] ([facility]) [address] [place] [id number] 5 04/11/2023 09:04:41 04/11/2023 13:51:07 care 598343651 Z39.2 [id number] JORGE ZAMORA [facility] ([facility]) [address] [place] [id number] 5 12/19/2023 08:16:23 12/19/2023 09:09:28 Dysuria 76556655 R30.0 Acute urin elaina tract infection 870391313 N39.0 Start Macrobid BID x7 days, take as prescribed . Encouraged to increase water intake and decrease caffeine and sugary drinks. If still having symptoms after completion of antibiotic s, recommend a urine re-check. Urine was sent for culture. Will call with culture results. If worsening condition or no improvemen t in 3-5 days, recommend returning for re-evaluat ion. Patient verbalized understand ing. [id number] RHIANNON ARCE [facility] ([facility]) [address] [place], [place] [phone] 5 06/18/2024 14:36:16 06/25/2024 13:26:49 Tuberculosis screening 026708679 Z11.1 [id number] Shemar Parra MD [facility] ([facility]) [address] [place], [place] [phone] 08/16/2024 15:14:53 08/16/2024 16:06:39 Normal in multigravida 6195197202 99862 Z34.81 [id number] Shemar Parra MD [facility]) [address] [place] [id number] 5 09/12/2024 09:47:31 09/13/2024 10:02:59 Normal in multigravida 3419564869 52152 Z34.81 Gestation period, 12 weeks 52262277 Z3A.12 Normal pre gnancy in primigravida 3833675273 98583 Z34.01 Z34.02 Z34.03 Heartburn 34826834 R12 [id number] RHIANNON HERBERT [facility] ([facility]) [address] [place] [id number] 5 09/22/2024 13:57:16 09/22/2024 14:33:47 Conjunctivitis of left eye caused by bacteria 0638089914 7430192 B96.89 wears contacts. [id number] Shemar Parra MD [facility] ([facility]) [address] [place], [place] [phone] 5 10/24/2024 10:45:59 10/24/2024 12:13:13 Normal 34818077 Z34.03 Gestation period, 18 weeks 69136175 Z3A.18 [id number] Shemar Parra MD [facility] ([facility]) [address] [place] [id number] 5 11/07/2024 12:39:31 11/08/2024 10:40:33 [id number] Sheamr Parra MD [facility] ([facility]) [address] [place] [id number] 5 11/21/2024 14:43:06 11/25/2024 12:58:06 Normal in multigravida 5146350016 83241 Z34.81 Gestation period, 22 weeks 50810369 Z3A.22 [id number] Shemar Parra MD [facility]) [address] [place] [id number] 5 12/18/2024 14:39:41 12/18/2024 15:36:40 Normal in multigravida 2142295877 32352 Z34.82 Gestation period, 26 weeks 45646690 Z3A.26 [id number] hSemar Parra MD [facility] ([facility]) [address] [place] [id number] 5 01/01/2025 13:51:20 01/02/2025 06:54:23 Normal in multigravida 8785105230 18214 Z34.82 Gestation period, 28 weeks 71665429 Z3A.28 Blood grou p A Rh(D) negative 480458214 Z67.11 [id number] Shemar Parra MD [facility] ([facility]) [address] [place] [id number] 5 01/09/2025 12:43:43 01/10/2025 13:41:30 [id number] Shemar Parra MD [facility] ([facility]) [address] [place] [id number] 5 01/16/2025 15:34:31 01/16/2025 16:45:25 Normal in multigravida 7754317412 33297 Z34.82 Gestation period, 30 weeks 09076800 Z3A.30 Heartburn 51941483 R12 Dysuria 54476683 R30.0 [id number] Shemar Parra MD [facility] ([facility]) [address] [place] [address] [id number] 5 01/30/2025 15:41:48 03/22/2025 20:14:38 Normal in multigravida 5780607990 00100 Z34.82 Gestation period, 32 weeks 4540782 Z3A.32 [id number] Shemar Parra MD [facility] ([facility]) [address] [place] [id number] 5 02/13/2025 15:50:07 03/22/2025 17:09:32 Normal in multigravida 4993762861 46243 Z34.82 Gestation period, 34 weeks 36816624 Z3A.34 [id number] Shemar Parra MD [facility] ([facility]) [address] [place] [id number] 5 02/27/2025 09:38:48 02/27/2025 10:49:24 Normal in multigravida 3586047529 99515 Z34.82 Gestation period, 36 weeks 95415169 Z3A.36 [id number] Shemar Parra MD [facility] ([facility]) [address] [place] [address] [id number] 5 03/03/2025 15:17:06 03/05/2025 11:56:04 Normal in multigravida 9325058849 71981 Z34.83 Gestation period, 36 weeks 12740067 Z3A.36 [id number] Shemar Parra MD [facility] ([facility]) [address] [place] [id number] 5 03/13/2025 14:48:53 03/13/2025 15:12:02 Normal in multigravida 1544358216 14146 Z34.83 Gestation period, 38 weeks 04795354 Z3A.38 [id number] Shemar Parra MD [facility] ([facility]) [address] [place] [address] [id number] 5 03/20/2025 14:49:10 03/20/2025 15:43:54 Normal in multigravida 4725397296 07618 Z34.83 Gestation period, 39 weeks 59125077 Z3A.39 Health Concerns Section Related Observation LastModified by Organization Detai ls LastModified Time None Recorded Concern Status LastModified by Organization Details LastModified Time None Recorded Advance Directives Directive None Recorded Payers Insurance Date Sequence Insurance Name Policy Number Policy [place] Covered Member ID [place] Member ID Guarantor Name 03/18/2025 1 [facility] [id number] Tigist Delaney [id number] Tigist Delaney 03/17/2025 [facility] (MEDICAID HMO) Tigist Raoy [id number] Tigist Delaney 03/18/2025 1 [facility] (MEDICAID HMO) Tigist Gallardo Elaina [id number] Tigist Delaney 08/13/2024 1 [facility] [id number] Tigist Delaney [id number] Tigist Delaney Notes Date Note Type Note Provider Name and Address Organization Details Recorded Time 02/13/2025 text/html Pt states has blue d more anxiety, and is very edgy. Pt stated that she woke up with a headache Shemar Parra MD [address] [place] [address], [phone], [facility] 03/22/2025 17:09:31 02/13/2025 text/html ob routineRep orted bypatient.Associated Symptoms:no abdominal pain; normal movement; no bleeding; no vaginal discharge; no vaginal/vulvar itching or irritation; no dysuria; no frequency; no urgency; no hematuria; no fever; no emesis; no constipation; no diarrhea/loose stool; no visual changes; no dizziness; no breathlessness;crampi ng(worse @ night);contractions;n ausea;edema(hands/fee t);headacheNotes:Pt denies any alcohol, tobacco or drug useHeartburn,back pain, vaginal pressure that is worse at night Shemar Parra MD [address] [place] [address], [phone], [facility] 03/22/2025 17:09:31 02/27/2025 text/html ob routineRep orted bypatient.Associated Symptoms:no abdominal pain; normal movement; no bleeding; no vaginal discharge; no vaginal/vulvar itching or irritation; no dysuria; no frequency; no urgency; no hematuria; no fever; no emesis; no constipation; no diarrhea/loose stool; no visual changes; no breathlessness;crampi ng(worse @ night);contractions;n ausea;edema(hands/fee t/face);headache;dizz inessNotes:Pt denies any alcohol, tobacco or drug useHeartburn,back pain, vaginal pressure that is worse at night History- Pt states has had more anxiety, and is very edgy.Pt states the anxiety is about the same Shemar Parra MD [address] [place] [address], [phone], [facility], LJhonatanLJhonatanC. 02/27/2025 10:45:29 03/03/2025 text/html ob routineRep orted bypatient.Associated Symptoms:normal movement; no bleeding; no vaginal discharge; no vaginal/vulvar itching or irritation; no dysuria; no frequency; no urgency; no hematuria; no fever; no constipation; no diarrhea/loose stool; no visual changes; no breathlessness;abdomi nal pain;cramping(worse @ night);contractions;n ausea;emesis;edema(blue nds/feet/face);headac he;dizzinessNotes:Pt denies any alcohol, tobacco or drug useHeartburn,back pain, vaginal pressure History- Pt states has had more anxiety, and is very edgy.Pt states the anxiety is about the same Shemar Parra MD [address] [place] [address], [phone], [facility], L.L.C. 03/03/2025 18:24:12 03/13/2025 text/html ob routineRep orted bypatient.Associated Symptoms:normal movement; no bleeding; no vaginal discharge; no vaginal/vulvar itching or irritation; no dysuria; no frequency; no urgency; no hematuria; no fever; no constipation; no visual changes; no dizziness; no breathlessness;abdomi nal pain;cramping(worse @ night);contractions;n ausea;emesis;diarrhea /loose stool;edema(hands/fee t/face);headacheNotes :Pt denies any alcohol, tobacco or drug useHeartburn,back pain, vaginal pressure Pt states the anxiety is about the same Shemar Parra MD [address] [place] [address], [phone], [facility], L[facility] 03/13/2025 15:11:30 03/20/2025 text/html jr ob routineRep orted bypatient.Associated Symptoms:normal movement; no bleeding; no vaginal discharge; no vaginal/vulvar itching or irritation; no dysuria; no frequency; no urgency; no hematuria; no fever; no emesis; no diarrhea/loose stool; no visual changes; no dizziness; no breathlessness;abdomi nal pain;cramping(worse @ night);contractions;n ausea;constipation;ed robi(hands/feet/face); headacheNotes:Pt denies any alcohol, tobacco or drug useHeartburn,back pain, vaginal pressure Shemar Parra MD [address] [place] [address], [phone], [facility], L[facility] 03/20/2025 15:43:43 OBGyn Episode Ob Episode Information Episode Created Date Number of Fetuses Patient Bloodtype Patient rh Status Prepregnancy Weight lbs Domestic Partner Domestic Partner Phone Father Name Cash Applications Analyst Status 04/11/20 23 1 DELETED Evans Calculation Initial Evans Date Initial Exam Date Initial Exam Provider Initial Ultrasound Date Last Menstrual Period Date Ultra Sound Weeks Gestation 0 Eighteen To Twenty Week Evans Update Ultra Sound Date Fundal Height At Umbil Quickening Date Ultra Sound Latest Weeks Gestation Final Evans Confirmed By Final Evans Confirmed Date Final Evans Date Ultra Sound Latest Days Gestation 0 0 Menstrual History Last Menstrual Date Menses Monthly On Bcp Conception Prior Menses Frequency Hcg Plus Date Menarche Onset Age Delivery Information Delivery Date Delivery Type Labor Anesthesia Weeks Gestation Incision Type Labor Labor Length Hrs Delivered By Post Complications Tubal Sterilization Discharge Date Comments 3 39 Jaxx Discharge Information Feeding Method Contraceptive Method Maternal HG B and HCT Levels Ob Episode Information Episode Created Date Number of Fetuses Patient Bloodtype Patient rh Status Prepregnancy Weight lbs Domestic Partner Domestic Partner Phone Father Name Cash Applications Analyst Status 08/16/20 24 1 A Negative Sandor OPEN Fetus Data First Name Last Name Admitted to NICU Weight (g) Sex Living Outcome Pediatric Complications Fetus ID Race Codes Race Delivery Type [id number] Problems Problem Notes Two-vessel cord Problem Name Start Date End Date Resolution Snomed Code Not e Normal in multigravida 11/20/2024 [id number] Evans Calculation Initial Evans Date Initial Exam Date Initial Exam Provider Initial Ultrasound Date Last Menstrual Period Date Ultra Sound Weeks Gestation 08/16/2024 06/18/2024 0 Eighteen To Twenty Week Evans Update Ultra Sound Date Fundal Height At Umbil Quickening Date Ultra Sound Latest Weeks Gestation Final Evans Confirmed By Final Evans Confirmed Date Final Evans Date Ultra Sound Latest Days Gestation 0 [email or web address] 08/16/2024 025 0 Pre-jonathan Flowsheet Flowsheet Date 08/16/2024 Smallwood Score Blood Edema Fundus Height Fundus Units Glucose Ketones Leukocytes Nitrite Labor Signs Protein Cervic Dilation Cervic Effacement Cervic Station Type Weight in lbs Pre/Post Dialysis Refused 122.392854609682 BP Diastolic BP Location Tested BP Systolic BP Type 62 110 sitting Fetus Heart Rate Present Fetus Movement Comments OBI-nausea Flowsheet Date 09/12/2024 Smallwood Score Blood Edema Fundus Height Fundus Units Glucose Ketones Leukocytes Nitrite Labor Signs Protein Cervic Dilation Cervic Effacement Cervic Station Type Weight in lbs Pre/Post Dialysis Refused 122.946744871496 BP Diastolic BP Location Tested BP Systolic BP Type 60 100 sitting Fetus Heart Rate Present A 162 Present Fetus Movement Comments NOB,abdominal serena/cramping, dysuria, nausea, headache, heartburn, constipation. Flowsheet Date 09/22/2024 Smallwood Score Blood Edema Fundus Height Fundus Units Glucose Ketones Leukocytes Nitrite Labor Signs Protein Cervic Dilation Cervic Effacement Cervic Station Type Weight in lbs Pre/Post Dialysis Refused Weight 124.228485730318 BP Diastolic BP Location Tested BP Systolic BP Type 64 L arm 102 sitting Fetus Heart Rate Present Fetus Movement Comments Flowsheet Date 10/24/2024 Smallwood Score Blood Edema Fundus Height Fundus Units Glucose Ketones Leukocytes Nitrite Labor Signs Protein Cervic Dilation Cervic Effacement Cervic Station none trace trace Type Weight in lbs Pre/Post Dialysis Refused 127.975720772533 BP Diastolic BP Location Tested BP Systolic BP Type 66 110 Fetus Heart Rate Present A 152 Present Fetus Movement A No Comments headaches, abd pain and cram ps, constipation, heartburn Flowsheet Date 11/07/2024 Smallwood Score Blood Edema Fundus Height Fundus Units Glucose Ketones Leukocytes Nitrite Labor Signs Protein Cervic Dilation Cervic Effacement Cervic Station Type Weight in lbs Pre/Post Dialysis Refused BP Diastolic BP Location Tested BP Systolic BP Type Fetus Heart Rate Present Fetus Movement Comments u/s on11/07/24, EGA 19.2, EVANS 04/01/25, Breech presentation, Placenta is anterior no previa. Two-vessel cord. Normal insertion. FHR 143. Other survey normal Flowsheet Date 11/21/2024 Smallwood Score Blood Edema Fundus Height Fundus Units Glucose Ketones Leukocytes Nitrite Labor Signs Protein Cervic Dilation Cervic Effacement Cervic Station none trace trace Type Weight in lbs Pre/Post Dialysis Refused 134.377701724951 BP Diastolic BP Location Tested BP Systolic BP Type 68 110 Fetus Heart Rate Present A 148 Present Fetus Movement A No Comments abd cramps- worse at night, heartburn, headaches Flowsheet Date 12/18/2024 Smallwood Score Blood Edema Fundus Height Fundus Units Glucose Ketones Leukocytes Nitrite Labor Signs Protein Cervic Dilation Cervic Effacement Cervic Station 25 cm none none neg Type Weight in lbs Pre/Post Dialysis Refused 139.456811260700 BP Diastolic BP Location Tested BP Systolic BP Type 62 110 Fetus Heart Rate Present A 160 Present Fetus Movement A Yes Comments cramping at night, heartburn , headaches Flowsheet Date 01/01/2025 Smallwood Score Blood Edema Fundus Height Fundus Units Glucose Ketones Leukocytes Nitrite Labor Signs Protein Cervic Dilation Cervic Effacement Cervic Station 27 cm none neg Type Weight in lbs Pre/Post Dialysis Refused Weight 140.979737925556 BP Diastolic BP Location Tested BP Systolic BP Type 68 L arm 114 Fetus Heart Rate Present A 140 Present Fetus Movement A Yes Comments cramping, back pain, headach es, heartburnRhoGam injection given Flowsheet Date 01/09/2025 Smallwood Score Blood Edema Fundus Height Fundus Units Glucose Ketones Leukocytes Nitrite Labor Signs Protein Cervic Dilation Cervic Effacement Cervic Station Type Weight in lbs Pre/Post Dialysis Refused BP Diastolic BP Location Tested BP Systolic BP Type Fetus Heart Rate Present Fetus Movement Comments Flowsheet Date 01/16/2025 Smallwood Score Blood Edema Fundus Height Fundus Units Glucose Ketones Leukocytes Nitrite Labor Signs Protein Cervic Dilation Cervic Effacement Cervic Station 29 cm none trace Negative trace Type Weight in lbs Pre/Post Dialysis Refused Weight 144.923543392366 BP Diastolic BP Location Tested BP Systolic BP Type 74 130 sitting Fetus Heart Rate Present A 142 Present Fetus Movement A Yes Comments cramping at night, spotting on 01/12/25, edena feet/hands, headache,heartburn, back pain, vagginal pressure Flowsheet Date 01/30/2025 Smallwood Score Blood Edema Fundus Height Fundus Units Glucose Ketones Leukocytes Nitrite Labor Signs Protein Cervic Dilation Cervic Effacement Cervic Station 32 cm none trace Negative neg Type Weight in lbs Pre/Post Dialysis Refused Weight 144.308010191863 BP Diastolic BP Location Tested BP Systolic BP Type 70 L arm 126 sitting Fetus Heart Rate Present A 148 Present Fetus Movement A Yes Comments Flowsheet Date 02/13/2025 Smallwood Score Blood Edema Fundus Height Fundus Units Glucose Ketones Leukocytes Nitrite Labor Signs Protein Cervic Dilation Cervic Effacement Cervic Station 33 cm none trace [place] 1+ Type Weight in lbs Pre/Post Dialysis Refused Weight 146.369519804335 BP Diastolic BP Location Tested BP Systolic BP Type 80 L arm 144 sitting 74 L arm 118 sitting Fetus Heart Rate Present A 156 Present Fetus Movement A Yes Comments vaginal pressure, cramps at night, swelling feet/hands, headache, Flowsheet Date 02/27/2025 Smallwood Score Blood Edema Fundus Height Fundus Units Glucose Ketones Leukocytes Nitrite Labor Signs Protein Cervic Dilation Cervic Effacement Cervic Station none trace Negative [place] neg Type Weight in lbs Pre/Post Dialysis Refused Weight 143.717816488120 BP Diastolic BP Location Tested BP Systolic BP Type 74 122 sitting Fetus Heart Rate Present A 140 Present Fetus Movement A Yes Comments Group B today, cramping wors e at night, nausea, edema-feet/face/hands/legs, headache, heartburn, low back pain, vaginal pressure. Flowsheet Date 03/03/2025 Smallwood Score Blood Edema Fundus Height Fundus Units Glucose Ketones Leukocytes Nitrite Labor Signs Protein Cervic Dilation Cervic Effacement Cervic Station 35 cm none none Negative [place] trace Type Weight in lbs Pre/Post Dialysis Refused Weight 144.178951384975 BP Diastolic BP Location Tested BP Systolic BP Type 62 112 sitting Fetus Heart Rate Present A 136 Present Fetus Movement A Yes Comments abdominal pain/cramping, N/V , edema feet/legs/face, Headache, dizziness, heartburn,low back pain,vaginal pressure. Flowsheet Date 03/04/2025 Smallwood Score Blood Edema Fundus Height Fundus Units Glucose Ketones Leukocytes Nitrite Labor Signs Protein Cervic Dilation Cervic Effacement Cervic Station Type Weight in lbs Pre/Post Dialysis Refused BP Diastolic BP Location Tested BP Systolic BP Type Fetus Heart Rate Present Fetus Movement Comments Group B strep NegativeOB rec ords sent Flowsheet Date 03/13/2025 Smallwood Score Blood Edema Fundus Height Fundus Units Glucose Ketones Leukocytes Nitrite Labor Signs Protein Cervic Dilation Cervic Effacement Cervic Station 37 cm none trace Uterine Contract ions trace 1cm 20% -4 Type Weight in lbs Pre/Post Dialysis Refused Weight 144.16681731681 BP Diastolic BP Location Tested BP Systolic BP Type 76 120 Fetus Heart Rate Present A 148 Present Fetus Movement A Yes Comments vaginal pressure, n/v, diarr hea, abd pain, cramps Flowsheet Date 03/20/2025 Smallwood Score Blood Edema Fundus Height Fundus Units Glucose Ketones Leukocytes Nitrite Labor Signs Protein Cervic Dilation Cervic Effacement Cervic Station 38 cm trace trace Uterine Contract ions 1+ 1cm 40% -4 Type Weight in lbs Pre/Post Dialysis Refused Weight 146.654288386113 BP Diastolic BP Location Tested BP Systolic BP Type 70 L arm 118 Fetus Heart Rate Present A 152 Present Fetus Movement A Yes Comments vaginal pressure, nausea, ab d pain and cramps, heartburn Menstrual History Last Menstrual Date Menses Monthly On Bcp Conception Prior Menses Frequency Hcg Plus Date Menarche Onset Age 0906/18/2024 Genetic Screening And Infection History Question Response Note Patient's Age Will Be 35 Years Or Older At Estim ated Date of Delivery false Thalassemia (Jordanian, Armenian, Mediterranean, Or Background): MCV < 80 false Neural Tube Defect (Meningomyelocele, Spina Bifi da, Or Anencephaly) false Congenital Heart Defect false Down Syndrome false Kai-Sachs (eg, Pentecostal, Cajun, Beninese-Namibian) f alse Rossy Disease false Sickle Cell Disease Or Trait () false Hemophilia Or Other Blood Disorders false Muscular Dystrophy false Cystic Fibrosis false [place]'s Chorea false Intellectual Disability/Autism false If Yes, Was Person Tested For Fragile X? false Other Inherited Genetic Or Chromosomal Disorder false Maternal Metabolic Disorder (eg, Type 1 Diabetes , PKU) false Patient Or Baby's Father Had A Child With Defects Not Listed Above false Recurrent Loss, Or A Stillbirth false Medications (including Suppl ements, Vitamins, Herbs, OTC Drugs), Illicit/Recreational Drugs, Alcohol false If Yes, Agent(s) And Strength/Dosage false Any Other Genetic History false Live With Someone With TB Or Exposed To TB false Patient Or Partner Has History Of Genital Herpes false Rash Or Viral Illness Since Last Menstrual Perio d false History Of STD, Gonorrhea, Chlamydia, HPV, Syphi lis false Other Infection History false History of HIV false History of Hepatitis false Prior GBS-infected child false Hemoglobinopathy Or Carrier false Other Structural Defect false Recent Travel History Outside of Country false Mental Retardation/Autism false Delivery Information Delivery Date Delivery Type Labor Anesthesia Weeks Gestation Incision Type Labor Labor Length Hrs Delivered By Post Complications Tubal Sterilization Discharge Date Comments Discharge Information Feeding Method Contraceptive Method Maternal HG B and HCT Levels Ob Episode Information Episode Created Date Number of Fetuses Patient Bloodtype Patient rh Status Prepregnancy Weight lbs Domestic Partner Domestic Partner Phone Father Name Cash Applications Analyst Status 12/15/19 23 1 A Negative CLOSED Fetus Data First Name Last Name Admitted to NICU Weight (g) Sex Living Outcome Pediatric Complications Fetus ID Race Codes Race Delivery Type Jaxx 3458.63 9 F Full Term 113 VAGINAL Problems Problem Notes Problem Name Start Date End Date Resolution Snomed Code Not e Restless legs [id number] RhD negative 12/26/2022 OTHER [id number] RhoGam injection given today Administration of diphtheria, pertussis, and tetanus vaccine 01/18/2023 OTHER [id number] TDaP inj ection given today Evans Calculation Initial Evans Date Initial Exam Date Initial Exam Provider Initial Ultrasound Date Last Menstrual Period Date Ultra Sound Weeks Gestation 12/14/2022 0 Eighteen To Twenty Week Evans Update Ultra Sound Date Fundal Height At Umbil Quickening Date Ultra Sound Latest Weeks Gestation Final Evans Confirmed By Final Evans Confirmed Date Final Evans Date Ultra Sound Latest Days Gestation 0 12/14/2022 03/08/20 23 0 Pre- Flowsheet Flowsheet Date 12/14/2022 Smallwood Score Blood Edema Fundus Height Fundus Units Glucose Ketones Leukocytes Nitrite Labor Signs Protein Cervic Dilation Cervic Effacement Cervic Station 28 wks none none trace Type Weight in lbs Pre/Post Dialysis Refused Weight 135.303322744548 BP Diastolic BP Location Tested BP Systolic BP Type 70 132 Fetus Heart Rate Present A 144 Present Fetus Movement A Yes Comments heartburn, pain in legs. Hav ing RLS at night in both legs, Intermittent swelling feet. Mod discharge. Flowsheet Date 12/26/2022 Smallwood Score Blood Edema Fundus Height Fundus Units Glucose Ketones Leukocytes Nitrite Labor Signs Protein Cervic Dilation Cervic Effacement Cervic Station Type Weight in lbs Pre/Post Dialysis Refused Weight 134.994982324665 BP Diastolic BP Location Tested BP Systolic BP Type 62 128 Fetus Heart Rate Present A 152 Present Fetus Movement A Yes Comments RhoGam injection given. JR/b h Flowsheet Date 01/05/2023 Smallwood Score Blood Edema Fundus Height Fundus Units Glucose Ketones Leukocytes Nitrite Labor Signs Protein Cervic Dilation Cervic Effacement Cervic Station 31 cm trace Cramping trace Type Weight in lbs Pre/Post Dialysis Refused Weight 137.845761087823 BP Diastolic BP Location Tested BP Systolic BP Type 76 132 Fetus Heart Rate Present A 144 Present Fetus Movement A Yes Comments cramping, low back pain, swe lling in feet Flowsheet Date 01/11/2023 Smallwood Score Blood Edema Fundus Height Fundus Units Glucose Ketones Leukocytes Nitrite Labor Signs Protein Cervic Dilation Cervic Effacement Cervic Station Type Weight in lbs Pre/Post Dialysis Refused BP Diastolic BP Location Tested BP Systolic BP Type Fetus Heart Rate Present Fetus Movement Comments Flowsheet Date 01/17/2023 Smallwood Score Blood Edema Fundus Height Fundus Units Glucose Ketones Leukocytes Nitrite Labor Signs Protein Cervic Dilation Cervic Effacement Cervic Station 32 cm 1+ trace trace Type Weight in lbs Pre/Post Dialysis Refused Weight 139.191591457619 BP Diastolic BP Location Tested BP Systolic BP Type 66 124 Fetus Heart Rate Present A 160 Present Fetus Movement A Yes Comments vaginal pressure, swelling, heartburn, reflux, nausea, cramping Flowsheet Date 01/18/2023 Smallwood Score Blood Edema Fundus Height Fundus Units Glucose Ketones Leukocytes Nitrite Labor Signs Protein Cervic Dilation Cervic Effacement Cervic Station Type Weight in lbs Pre/Post Dialysis Refused BP Diastolic BP Location Tested BP Systolic BP Type Fetus Heart Rate Present Fetus Movement Comments TDaP given today from provid ers stock Flowsheet Date 02/06/2023 Smallwood Score Blood Edema Fundus Height Fundus Units Glucose Ketones Leukocytes Nitrite Labor Signs Protein Cervic Dilation Cervic Effacement Cervic Station 35 cm none none [place] trace Type Weight in lbs Pre/Post Dialysis Refused Weight 141.371408478606 BP Diastolic BP Location Tested BP Systolic BP Type 76 122 Fetus Heart Rate Present A 144 Present Fetus Movement A Yes Comments vaginal pressure/ swelling i n feet/ pelvic pain/ back pain/ heartburn Flowsheet Date 02/06/2023 Smallwood Score Blood Edema Fundus Height Fundus Units Glucose Ketones Leukocytes Nitrite Labor Signs Protein Cervic Dilation Cervic Effacement Cervic Station Type Weight in lbs Pre/Post Dialysis Refused BP Diastolic BP Location Tested BP Systolic BP Type Fetus Heart Rate Present Fetus Movement Comments epidural consult order sent, request for 03/08/23 Flowsheet Date 02/13/2023 Smallwood Score Blood Edema Fundus Height Fundus Units Glucose Ketones Leukocytes Nitrite Labor Signs Protein Cervic Dilation Cervic Effacement Cervic Station Type Weight in lbs Pre/Post Dialysis Refused BP Diastolic BP Location Tested BP Systolic BP Type Fetus Heart Rate Present Fetus Movement Comments OB records faxed. Flowsheet Date 02/16/2023 Smallwood Score Blood Edema Fundus Height Fundus Units Glucose Ketones Leukocytes Nitrite Labor Signs Protein Cervic Dilation Cervic Effacement Cervic Station 36 cm 1+ trace Positive Uterine Contract ions trace 1cm 40% -3 Type Weight in lbs Pre/Post Dialysis Refused BP Diastolic BP Location Tested BP Systolic BP Type 70 132 Fetus Heart Rate Present A 144 Present Fetus Movement A Yes Comments vaginal pressure/ back pain/ pelvic pain/ swelling/ Flowsheet Date 02/22/2023 Smallwood Score Blood Edema Fundus Height Fundus Units Glucose Ketones Leukocytes Nitrite Labor Signs Protein Cervic Dilation Cervic Effacement Cervic Station 36 cm none trace Negative Uterine Contract ions trace 1cm 50% -4 Type Weight in lbs Pre/Post Dialysis Refused Weight 145.011712985401 BP Diastolic BP Location Tested BP Systolic BP Type 74 R arm 128 sitting Fetus Heart Rate Present A 152 Present Fetus Movement A Yes Comments Rib pain, vaginal pressure, cramping, edema feet/hands, back, pelvic pain, headache, heartburn Flowsheet Date 02/27/2023 Smallwood Score Blood Edema Fundus Height Fundus Units Glucose Ketones Leukocytes Nitrite Labor Signs Protein Cervic Dilation Cervic Effacement Cervic Station 38 cm none none Negative trace 1cm 70% -3 Type Weight in lbs Pre/Post Dialysis Refused Weight 147.198943486670 BP Diastolic BP Location Tested BP Systolic BP Type 76 R arm 136 sitting Fetus Heart Rate Present A 150 Present Fetus Movement A Yes Comments cramping, vaginal pressure, pelvic pain, back pain, edema feet/hands, heartburn, shortness of breath irregular contractions Flowsheet Date 04/11/2023 Smallwood Score Blood Edema Fundus Height Fundus Units Glucose Ketones Leukocytes Nitrite Labor Signs Protein Cervic Dilation Cervic Effacement Cervic Station Type Weight in lbs Pre/Post Dialysis Refused Weight 124.102142900799 BP Diastolic BP Location Tested BP Systolic BP Type 68 R arm 120 sitting Fetus Heart Rate Present Fetus Movement Comments Menstrual History Last Menstrual Date Menses Monthly On Bcp Conception Prior Menses Frequency Hcg Plus Date Menarche Onset Age Genetic Screening And Infection History Question Response Note Patient's Age Will Be 35 Yea rs Or Older At Estimated Date of Delivery false Thalassemia (Jordanian, Armenian, Mediterranean, Or Background): MCV < 80 false Neural Tube Defect (Meningom yelocele, Spina Bifida, Or Anencephaly) false Congenital Heart Defect false Down Syndrome false Kai-Sachs (eg, Pentecostal, Cajun, Beninese-Namibian) f alse Rossy Disease false Sickle Cell Disease Or Trait () false Hemophilia Or Other Blood Disorders false Muscular Dystrophy false Cystic Fibrosis false [place]'s Chorea false Intellectual Disability/Autism false If Yes, Was Person Tested For Fragile X? false Other Inherited Genetic Or Chromosomal Disorder false Maternal Metabolic Disorder (eg, Type 1 Diabetes , PKU) false Patient Or Baby's Father Had A Child With Defects Not Listed Above false Recurrent Loss, Or A Stillbirth false Medications (including Suppl ements, Vitamins, Herbs, OTC Drugs), Illicit/Recreational Drugs, Alcohol false v itamins If Yes, Agent(s) And Strength/Dosage false Any Other Genetic History false Live With Someone With TB Or Exposed To TB false Patient Or Partner Has History Of Genital Herpes false Rash Or Viral Illness Since Last Menstrual Perio d false History Of STD, Gonorrhea, Chlamydia, HPV, Syphi lis false Other Infection History false History of HIV false History of Hepatitis false Prior GBS-infected child false Hemoglobinopathy Or Carrier false Other Structural Defect false Recent Travel History Outside of Country false Mental Retardation/Autism false Delivery Information Delivery Date Delivery Type Labor Anesthesia Weeks Gestation Incision Type Labor Labor Length Hrs Delivered By Post Complications Tubal Sterilization Discharge Date Comments 3 Induce d 39.5 Shemar Parra MD Discharge Information Feeding Method Contraceptive Method Maternal HG B and HCT Levels
--- OUTSIDE RECORDS SUMMARY | 2025-03-24 02:48 | XMS_ITS | Continuity of Care Document ---
Author Organization [facility] [place], [facility] ([facility]) Address [address] [place] [address] Assessment No assessment recorded. Plan of Treatment Reminders Order Date Submit Date Provider Last Modified By Organization Details Last Modified Time Details Appointments RETURN OB 2024 01:50P M Shemar Parra MD Not available Not available Not available Lab None recorded . Referral None recorded . Procedures None recorded . Surgeries None recorded . Imaging None recorded . Medication Orders None recorded . Patient TargetsNo targets recorded. Patient InstructionsNo instructions recorded. Reason for Referral None Reported. Results Created Date Observation Date Name Description Value Unit Range Abnormal Flag Note LastModifiedBy Organization Detail LastModifiedTime 11/08/1911/07/2024 US, obste tric, 2nd trime ster No observ ation record ed. [email or web address] [facility] [address] [place], [address], 11/08/2024 17:48:20 Result Notes None recorded. Problems Name Problem SNOMED Code Status Onset Date Resolution Date Notes Provider Name and Address Organization Details Recorded Time Allergic rhinitis 66903664 Active 2023 GILMA gallardo [facility] 5 14:58:57 Normal pregnanc y in multigra mao 83847327851 410 Active 2024 [facility] 14:59:16 Normal pregnanc y in multigra mao 43713425922 4106 Active 2024 GILMA gallardo [facility] 5 14:59:17 RhD negative 479550005 Active 2022 RhoGam injectio n given today GILMA gallardo [facility] 5 15:01:40 RhD negative 442902457 Completed 2022 RhoGam injectio n given today Shemar Parra MD [address] [place] [address], [phone], [facility] 3 09:49:49 Administ ration of diphther ia, pertussi s, and tetanus vaccine Completed 2022 TDaP injectio n given today Shemar Parra MD [address] [place] [address], [phone], [facility] 3 09:49:49 Pregnanc y 29929127 Completed 202204/11/2023 GILMA gallardo [facility] 5 14:59:08 Restless legs 31987928 Completed Shemar Parra MD [address] [place] [address], [phone], [facility] 3 09:49:49 Problem Notes None recorded. Procedures Surgical History Date Name Laterality Status Provider Name and Address Organization Details Recorded Time 08/12/20 22 Date of Last Pap Smear completed GILMASERGIO FIGUEROA [facility] 01/01/2025 14:45:44 08/12/20 sampling of cervix for Papanicolaou smear completed GILMASERGIO FIGUEROA [facility] 01/01/2025 14:46:09 Imaging Results None recorded. Procedure [...] and Address Organization Details Last Updated DateTime 157.48 cm 26.7 kg/m2 67822.4 9 g 100 /min 98 % 98 % 98.3 [degF] 16 /min 118 mm[Hg] 70 mm[Hg] GILMA FIGUEROA [facility] 15:09:15 Social History Question Answer Notes LastModified by [employer] Details LastModified Time Tobacco Smoking Status Never Smoker SINCERE gallardo [facility] 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 Information not available 02/13/2025 Do you have [...] Recorded Time HPV9 6 completed GILMA gallardo [facility] 02/16/2023 14:27:36 IPV 9 completed GILMA gallardo [facility] 02/16/2023 14:27:36 IPV 4 completed GILMA gallardo [facility] 02/16/2023 14:27:36 IPV 9 completed GILMA gallardo [facility] 02/16/2023 14:27:36 IPV 0 completed GILMA gallardo [facility] 02/16/2023 14:27:36 MMR 0 completed GILMA gallardo, [facility] 02/16/2023 14:27:37 MMR 4 completed GILMA HENRY null, [facility] 02/16/2023 14:27:37 Tdap 2 completed GILMA GARNERY null, [facility] 02/16/2023 14:27:37 varicella 1 completed GILMA GARNERY null, [facility] 02/16/2023 14:27:37 Hep B, unspecified formulation 9 completed GILMA GARNERY null, [facility] 02/16/2023 14:27:37 Hep B, unspecified formulation 9 completed GILMA GARNERY null, [facility] 02/16/2023 14:27:37 Hep B, unspecified formulation 9 completed GILMA GARNERY null, [facility] 02/16/2023 14:27:37 Hib (PRP-T) 0 completed GILMA GARNERY null, [facility] 02/16/2023 14:27:37 Hib (PRP-T) 9 completed GILMA GARNERY null, [facility] 02/16/2023 14:27:37 Hib (PRP-T) 9 completed GILMA HENRY null, [facility] 02/16/2023 14:27:37 Hib (PRP-T) 0 completed GILMA GARNERY null, [facility] 02/16/2023 14:27:37 meningococcal MCV4P 2 completed GILMA GARNERY null, [facility] 02/16/2023 14:27:37 meningococcal MCV4P 6 completed GILMA HAMBY null, [facility] 02/16/2023 14:27:37 DTaP 0 completed GILMA GARNERY null, [facility] 02/16/2023 14:27:37 DTaP 9 completed GILMA HENRY null, [facility] 02/16/2023 14:27:37 DTaP 4 completed GILMA GARNERY null, [facility] 02/16/2023 14:27:37 DTaP 9 completed GILMASERGIO GARNERY null, [facility] 02/16/2023 14:27:37 DTaP 0 completed GILMA HENRY null, [facility] 02/16/2023 14:27:37 Influenza, split virus, quadrivalent, PF 9 completed GILMA HENRY null, [facility] 02/16/2023 14:27:37 Tdap 3 completed Shemar Parra MD [address] [place] [address], [phone], [facility] 01/21/2023 08:16:36 Past Encounters Encounter ID Performer Location Encounter Start Date Encounter Closed Date Diagnosis/Indication Diagnosis SNOMED-CT Code Diagnosis ICD10 Code Diagnosis Note [id number] Shemar Parra MD [facility] ([facility]) [address] [place] [phone] 02/27/2025 09:38:48 02/27/2025 10:49:24 Normal in multigravida 6529466943 66842 Z34.82 Gestation period, 36 weeks 34119780 Z3A.36 [id number] Shemar Parra MD [facility] ([facility]) [address] [place] [phone] 5 03/03/2025 15:17:06 03/05/2025 11:56:04 Normal in multigravida 1094724281 89352 Z34.83 Gestation period, 36 weeks 87486195 Z3A.36 [id number] Shemar Parra MD [facility] ([facility]) [address] [place] [phone] 03/13/2025 14:48:53 03/13/2025 15:12:02 Normal in multigravida 2212454362 33005 Z34.83 Gestation period, 38 weeks 80638567 Z3A.38 [id number] Shemar Parra MD [facility] ([facility]) [address] [place] [phone] 03/20/2025 14:49:10 03/20/2025 15:43:54 Normal in multigravida 3647782855 96033 Z34.83 Gestation period, 39 weeks 93063060 Z3A.39 Health Concerns Section Related Observation LastModified by Organization Detai ls LastModified Time None Recorded Concern Status LastModified by Organization Details LastModified Time None Recorded Payers Encounter Date Sequence Insurance Name Policy Number Policy [place] Covered Member ID [place] Member ID Guarantor Name 03/20/2025 1 [facility] (MEDICAID HMO) Tigist Delaney [id number] Tigist Delaney Notes Date Note Type Note Provider Name and Address Organization Details Recorded Time 03/20/2025 text/html jr ob routineRep orted bypatient.Associated Symptoms:normal movement; no bleeding; no vaginal discharge; no vaginal/vulvar itching or irritation; no dysuria; no frequency; no urgency; no hematuria; no fever; no emesis; no diarrhea/loose stool; no visual changes; no dizziness; no breathlessness;abdomi nal pain;cramping(worse @ night);contractions;n ausea;constipation;ed robi(hands/feet/face); headacheNotes:Pt denies any alcohol, tobacco or drug useHeartburn,back pain, vaginal pressure Shemar Parra MD [address] [place], [address], [facility] 03/20/2025 15:43:43 OBGyn Episode Ob Episode Information Episode Created Date Number of Fetuses Patient Bloodtype Patient rh Status Prepregnancy Weight lbs Domestic Partner Domestic Partner Phone Father Name Reel Fed Printer Status 08/16/20 24 1 A Negative Sandor OPEN Fetus Data First Name Last Name Admitted to NICU Weight (g) Sex Living Outcome Pediatric Complications Fetus ID Race Codes Race Delivery Type [id number] Problems Problem Notes Two-vessel cord Problem Name Start Date End Date Resolution Snomed Code Not e Normal in multigravida 11/20/2024 [id number] Evans Calculation Initial Evans Date Initial Exam [...] Type Weight in lbs Pre/Post Dialysis Refused 122.507205496572 BP Diastolic BP Location Tested BP Systolic BP Type 62 110 sitting Fetus Heart Rate Present Fetus Movement Comments OBI-nausea Flowsheet Date 09/12/2024 Smallwood Score Blood Edema Fundus Height Fundus Units Glucose Ketones Leukocytes Nitrite Labor Signs Protein Cervic Dilation Cervic Effacement Cervic Station Type Weight in lbs Pre/Post Dialysis Refused 122.954097950438 BP Diastolic BP Location Tested BP Systolic BP Type 60 100 sitting Fetus Heart Rate Present A 162 Present Fetus Movement Comments NOB,abdominal serena/cramping, dysuria, nausea, headache, heartburn, constipation. Flowsheet Date 09/22/2024 Smallwood Score Blood Edema Fundus Height Fundus Units Glucose Ketones Leukocytes Nitrite Labor Signs Protein Cervic Dilation Cervic Effacement Cervic Station Type Weight in lbs Pre/Post Dialysis Refused Weight 124.600533417289 BP Diastolic BP Location Tested BP Systolic BP Type 64 L arm 102 sitting Fetus Heart Rate Present Fetus Movement Comments Flowsheet Date 10/24/2024 Smallwood Score Blood Edema Fundus Height Fundus Units Glucose Ketones Leukocytes Nitrite Labor Signs Protein Cervic Dilation Cervic Effacement Cervic Station none trace trace Type Weight in lbs Pre/Post Dialysis Refused 127.154449742040 BP Diastolic BP Location Tested BP Systolic [...] Type Weight in lbs Pre/Post Dialysis Refused 134.779007048926 BP Diastolic BP Location Tested BP Systolic [...] Type Weight in lbs Pre/Post Dialysis Refused 139.329020471354 BP Diastolic BP Location Tested BP Systolic [...] Weight in lbs Pre/Post Dialysis Refused Weight 140.105196069349 BP Diastolic BP Location Tested BP Systolic [...] Weight in lbs Pre/Post Dialysis Refused Weight 144.910148631368 BP Diastolic BP Location Tested BP Systolic [...] Weight in lbs Pre/Post Dialysis Refused Weight 144.866453574122 BP Diastolic BP Location Tested BP Systolic BP Type 70 L arm 126 sitting Fetus Heart Rate Present A 148 Present Fetus Movement A Yes Comments Flowsheet Date 02/13/2025 Smallwood Score Blood Edema Fundus Height Fundus Units Glucose Ketones Leukocytes Nitrite Labor Signs Protein Cervic Dilation Cervic Effacement Cervic Station 33 cm none trace Childs Merritt 1+ Type Weight in lbs Pre/Post Dialysis Refused Weight 146.819146973843 BP Diastolic BP Location Tested BP Systolic [...] Cervic Effacement Cervic Station none trace Negative Childs [place] neg Type Weight in lbs Pre/Post Dialysis Refused Weight 143.242554072336 BP Diastolic BP Location Tested BP Systolic [...] Weight in lbs Pre/Post Dialysis Refused Weight 144.782582549310 BP Diastolic BP Location Tested BP Systolic [...] Weight in lbs Pre/Post Dialysis Refused Weight 144.57003446143 BP Diastolic BP Location Tested BP Systolic [...] Weight in lbs Pre/Post Dialysis Refused Weight 146.503993233257 BP Diastolic BP Location Tested BP Systolic [...] Estim ated Date of Delivery false Thalassemia (Chilean, Slovenian, Mediterranean, Or Background): MCV < 80 false Neural Tube Defect (Meningomyelocele, Spina Bifi da, Or Anencephaly) false Congenital Heart Defect false Down Syndrome false Kai-Sachs (eg, Religion, Cajun, Slovak-Bulgarian) f alse Rossy Disease false Sickle Cell Disease Or Trait () false Hemophilia Or Other Blood Disorders false Muscular Dystrophy false Cystic Fibrosis false Quincy's Chorea false Intellectual Disability/Autism false If Yes, [...]
--- NOTE | 2025-03-24 03:05 | P.ANESASSM_ITS ---
Pre-Anesthetic Assessment Height/Weight: Height 1.57 m Weight 67.132 kg Pulse Resp BP O2 Del Method 78 16 127/77 Room Air 03/24/25 03:12 03/23/25 23:58 03/24/25 03:12 03/23/25 19:00 Preop Diagnosis: labor pain epidural Familial anesthetic complications: none Was Beta Martha taken within 24 hours: N/A Was Clonidine taken within 24 hours: N/A Social No alcohol and No tobacco Exam alert and oriented x 3 Airway Submandibular: within normal limits Cervical ROM: within normal limits Mallampati: Class II Dentition: full History/ROS No significant complaints Anesthetic Plan ASA status: 2 Anesthesia: Anesthesia Evaluation and Regional (specify below) Risk of > 500 ml blood loss (7ml/kg in children): Yes, adequate IV access and fluids planned Medications/Allergies Home Medications ?Medication ?Instructions ?Recorded ?Confirmed ?Last Taken ?Type famotidine 20 mg tablet 20 mg PO DIRECTED PRN Aci d 03/23/25 03/23/25 03/23/25 18:00 History Reflux Allergies Allergy/AdvReac Type Severity Reaction Status Date / Time No Known Allergies Allergy Verified 04/07/21 13:42 Current Medications Generic Name Dose Route Start Last Admin Trade Name Freq PRN Reason Stop Dose Admin Lactated Ringer's 1,000 mls @ 999 mls/hr 03/24/25 01:57 03/24/25 02:12 Lactated Ringers IV 999 mls/hr .Q1H1M PRN Administration See label comments PFSH Anesthesia Female Reproductive History : 2 Data Anesthesia 03/23/25 19:15 Short CBC 03/23/25 Range/Units 19:15 WBC 7.91 (3.29-11.43) 10^3/uL Hgb 9.80 L (11.27-16.99) g/dL Hct 30.2 L (36-47) % MCV 81.8 L (85-98) fl Plt Count 231 (157-399) 10^3/cmm Neut % (Auto) 70.3 % Neut # (Auto) 5.56 (1.8-7.7) 10^3/uL Blood Bank 03/23/25 19:15 Blood Type A Negative Rho(D) Type Rh negative Antibody Screen Positive
--- NOTE | 2025-03-24 03:20 | ANES.PROC ---
Anesthesia Procedures Procedure/Date: 03/24/25 Epidural: Time Out Performed: Yes Consents Signed: Procedure Consent Consent: from patient, risks and benefits reviewed and patient agrees to proceed Lumbar Level: L3-L4 Epidural position: sitting Epidural procedure: sterile prep of area, 1% lidocaine to numb the area, 18 g needle, negative for paresthesia passed, test dose given, 1.5% xylocaine 1:200k epi, placed PCEA, no systemic response, sterile dressing applied, L.U.D. no apparent complications and 0.2% Ropiavacaine @ mls/hr (10) Additional Comments: ETTA at 4, negative heme/CSF with aspiration. taped at 11 at skin. tolerated well.
[2025-03-24] MEDS: ROPivacaine syringe 100 MG/50 ML SYRINGE 10 MG EPIDURAL ×3 (03:25→09:30)
[2025-03-24] MEDS: ondansetron 2 mg/ML SDV 2 mL 4 MG IVP (05:12)
--- NOTE | 2025-03-24 05:34 | P.HPUD_ITS ---
Labor & Delivery H&P Update Date of Procedure: March 24, 2025 Date H&P Performed: 03/20/25 Changes to previous documentation: The patient was having contractions about every 5 minutes upon presentation to the hospital Admission Diagnosis: 25-year-old 2 para 1-0-0-1 at 39 weeks and 6 days presenting for elective induction Preop diagnosis: labor pain Planned procedure: Vaginal delivery Other information: The patient is a pleasant 25-year-old female who presented to the [facility] for induction. In my office we discussed her options including the option of induction. She was aware that induction increased risk of a . Her is otherwise been relatively unremarkable. Her blood type is A positive. Her antibody screen is negative. She is GBS negative. She passed her glucose screen. The remainder of her infectious disease profile is within normal limits. She is rubella immune. Related Problem List Diagnoses (1) 39 weeks gestation of : (2) Two vessel umbilical cord, antepartum: A&P Assessment and plan (1) 39 weeks gestation of : I anticipate routine labor and vaginal delivery. She has been having some late and variable decelerations, but she has made some quick change recently, and we are hoping that we will deliver her soon. Status: Acute (2) Two vessel umbilical cord, antepartum: Status: Acute PDMP PDMP Reviewed: Not Reviewed
[2025-03-24] MEDS: oxytocin 30 UNIT/500 ML BAG 600 UNIT IV (10:40)
--- NOTE | 2025-03-24 10:51 | P.PCNOB_ITS ---
Delivery Note: Date of delivery: March 24, 2025 Pre-delivery diagnoses: 25-year-old 2 para 1-0-0-1 at 39 weeks estimated gestational age in active labor post induction Post-delivery diagnoses: Status post spontaneous vaginal delivery Procedure: Spontaneous vaginal delivery Delivering Physician: Shemar Parra Estimated blood loss (mL): 50 Pre-Delivery Course: The patient presented to the hospital for induction the night prior to delivery. She was placed on Cytotec 25 mcg x 2 per vagina. An epidural was placed. She progressed to 9 cm. An amniotomy was performed. She then progressed to complet e. She was allowed to labor down for several hours. Delivery: DELIVERY: The patient progressed to complete without difficulty. She delivered a male with a weight of 7 pounds 9 ounces with Apgars of 8, 9. The baby was delivered from the CASTRO position and placed on the mother's abdomen. The cord was then clamped and cut. There was no nuchal cord. There was no meconium. The placenta and 3 vessel cord were delivered intact shortly thereafter. The perineum and vaginal vault were carefully examined. No lacerations were noted. Both the mother and the baby were in stable condition. Post-Delivery Status: Good History History History 2 Term 2 0 Miscarriages/Ectopic 0 Living Children 2 A&P Assessment and plan (1) 39 weeks gestation of : I anticipate routine care. (2) Two vessel umbilical cord, antepartum: (3) Spontaneous vaginal delivery: PDMP PDMP Reviewed: Not Reviewed Coding Level of Care Code Acute Code for Chg Fwd Diagnoses 39 weeks gestation of Z3A.39 Two vessel umbilical cord, antepartum O09.899 Spontaneous vaginal delivery O80
[2025-03-24] MEDS: benzocaine-menthol 78 gm Canister 1 SPRAY TOPICAL (13:44)
[2025-03-24] MEDS: HYDROcodone-acetaminophen 5-325 mg Tablet PO (13:44)
[2025-03-24 23:01] LABS: Hematocrit 29.0 % (36-47); Hemoglobin 9.30 g/dL (11.27-16.99); Mean Corpuscular HGB Conc 32.1 g/dL (30-55); Mean Corpuscular Hemoglobin 26.6 pg (27-33); Mean Corpuscular Volume 82.9 fl (85-98); Platelet Count 198 10^3/cmm (157-399); Red Blood Count 3.50 10^6/uL (3.85-5.65); White Blood Count 13.39 10^3/uL (3.29-11.43)
[2025-03-25] MEDS: HYDROcodone-acetaminophen 5-325 mg Tablet PO (01:12)
[2025-03-25 04:10] VITALS: BP 115/65; PULSE 81; RESP 16; TEMP 36.4; O2SAT 99
--- NOTE | 2025-03-25 07:12 | PM.OBGYDC ---
Discharge Providers VIRTUALIZATION ARCHITECT Date of Admission: 03/23/25 19:00 Date of Discharge: 03/25/25 Attending Provider at Admission: Shemar Parra MD Attending Provider at Discharge: Shemar Parra MD Primary Care Provider: Shemar Parra MD Diagnoses at Discharge Discharge Diagnosis (1) 39 weeks gestation of : Status: Acute (2) Two vessel umbilical cord, antepartum: Status: Acute (3) Spontaneous vaginal delivery: Status: Acute Reason for Visit Reason for Visit: IOL Hospital Course Hospital Course The patient arrived to the hospital for an elective induction. She was given Cytotec 25 mcg x 2. An epidural was placed. An amniotomy was performed. She progressed to complete and was able to labor down for several hours. She then had an unremarkable vertex delivery of a healthy appearing term . She had no significant tearing. Her course was also unremarkable. Her bleeding was within normal limits. Her pain was well-controlled. There were no concerns. Information Peripartum Data: Infant Delivery Method: Vaginal Physical Exam Narrative: The patient is alert. She appears comfortable. Her heart has a regular rate and rhythm with no murmurs appreciated. Lungs are clear to auscultation bilaterally. Her fundus is firm and below the umbilicus. Urinary Catheter Management: Whtiney: Cath Placed During This Visit: yes Reason for Continuing Indwelling Catheter: Accurate Measurement of Urinary Output in Critically Ill Patients Urinary Catheter Date of Insertion: 03/24/25 Urinary Catheter Time of Insertion: 04:05 History History History 2 Term 2 0 Miscarriages/Ectopic 0 Living Children 2 Discharge Data Studies Completed and Pending Pending at discharge Category Date Time Status Antibody Identification Routine Lab 03/23/25 19:15 Results Complete Crossmatch Routine Lab 03/23/25 19:15 Results Rho D Immune Globulin Routine Lab 03/23/25 19:15 Results Type and Screen Routine Lab 03/23/25 19:15 Results Laboratory Results WBC 13.39 10^3/uL (3.29-11.43) H 03/24/25 22:51 RBC 3.50 10^6/uL (3.85-5.65) L 03/24/25 22:51 Hgb 9.30 g/dL (11.27-16.99) L 03/24/25 22:51 Hct 29.0 % (36-47) L 03/24/25 22:51 MCV 82.9 fl (85-98) L 03/24/25 22:51 MCH 26.6 pg (27-33) L 03/24/25 22:51 MCHC 32.1 g/dL (30-55) 03/24/25 22:51 RDW 13.3 % (12.1-15.1) 03/24/25 22:51 Plt Count 198 10^3/cmm (157-399) 03/24/25 22:51 MPV 11.4 fL (7.4-10.4) H 03/24/25 22:51 Neut % (Auto) 70.3 % 03/23/25 19:15 Lymph % (Auto) 19.6 % 03/23/25 19:15 Roane % (Auto) 8.7 % 03/23/25 19:15 Eos % (Auto) 0.4 % 03/23/25 19:15 Baso % (Auto) 0.4 % 03/23/25 19:15 Neut # (Auto) 5.56 10^3/uL (1.8-7.7) 03/23/25 19:15 Lymph # (Auto) 1.6 10^3/uL (0.8-4.8) 03/23/25 19:15 Roane # (Auto) 0.7 10^3/uL (0.2-0.9) 03/23/25 19:15 Eos # (Auto) 0.0 10^3/uL (0.0-0.8) 03/23/25 19:15 Baso # (Auto) 0.0 10^3/uL (0.0-0.1) 03/23/25 19:15 Nucleated RBC % (auto) 0 % 03/23/25 19:15 Nucleated RBCs # 0.0 /100WBC 03/23/25 19:15 Blood Type A Negative 03/23/25 19:15 Rho(D) Type Rh negative 03/23/25 19:15 Antibody Screen Positive 03/23/25 19:15 Antibody Identification Anti-D 03/23/25 19:15 Screen Negative (Negative) 03/24/25 22:51 Vitals Last Vital Signs Temp 97.6 F 03/25/25 04:10 Pulse 81 03/25/25 04:10 Resp 16 03/25/25 04:10 BP 115/65 03/25/25 04:10 Pulse Ox 99 03/25/25 04:10 O2 Del Method Room Air 03/25/25 04:10 Results Labs OB ([facility]): Blood Type A Negative 03/23/25 Antibody Screen Positive 03/23/25 Hct, (36-47) 29.0 % L 03/24/25 Hgb, (11.27-16.99) 9.30 g/dL L 03/24/25 Rho(D) Type Rh negative 03/23/25 Plt Count, (157-399) 198 10^3/cmm 03/24/25 Discharge Plan Discharge Patient Disposition: Home Condition: Stable Prescriptions: New ibuprofen 800 mg Tablet 800 mg PO TID Qty: 45 0RF Vitamin 27 mg iron- 800 mcg Tablet 1 tab PO DAILY Qty: 90 0RF Discontinued famotidine 20 mg tablet 20 mg PO DIRECTED PRN (Reason: Acid Reflux) Discharge Orders: Discharge Order (Routine); Ordered 03/25/25 Ordered By: Shemar Parra Referrals: Shemar Parra MD [Primary Care Provider, [facility]] - 6 Weeks Discharge Diet: Usual diet Discharge Activity: Resume usual activity Patient Instructions: Depression (DC), Opioid Safety (DC), Preeclampsia and Eclampsia After Delivery (GEN), Hemorrhage (DC), OB Discharge Report, OB Food/Drug Interaction Guide, OB Care at Home, Opioid Safety, OB Vaginal Deliveries, Patient Portal & [place] Instructions, Abnormal Bleeding Discharge Attestations VIRTUALIZATION ARCHITECT Time Spent in Discharge Care*: less than 30 min Coding Level of Care Code Acute Code for Chg Fwd Diagnoses 39 weeks gestation of Z3A.39 Two vessel umbilical cord, antepartum O09.899 Spontaneous vaginal delivery O80
[2025-03-25] MEDS: PRENATAL VIT NO.130/IRON/FOLIC 1 EACH TABLET PO (09:18)
[2025-03-25 11:03] VITALS: BP 114/68; PULSE 69; RESP 17
[2025-03-25 11:09] VITALS: BP 114/68; PULSE 73; RESP 16; TEMP 36.4; O2SAT 99
[2025-03-25 11:30] VITALS: BP 114/68; PULSE 73; RESP 16; TEMP 36.4; O2SAT 99
--- NOTE | 2025-03-25 12:48 | ANE.PACU2 ---
Inpatient post-anesthesia follow up: Airway intact: Yes Vital signs: Temperature 97.6 F Pulse Rate 73 Respiratory Rate 16 Blood Pressure 114/68 Pulse Oximetry 99 Oxygen Delivery Me thod Room Air Oxygen Flow Rate Fraction of Inspir ed Oxygen Hydration adequate: Yes Nausea and vomiting: No Pain level: 2 Mental status: Baseline Epidural Start/End: Epidural Start Date: 03/24/25 Epidural Start Time: 03:05 Epidural End Date: 03/24/25 Epidural End Time: 12:18
== END 2025-03-25 11:30 | disposition home or self-care (01) | DRG 807 ==
PROVIDERS: Admitting Provider Family Medicine; PCP Family Medicine; Visit Provider Family Medicine
DX: O69.89X0 Labor and delivery complicated by other cord complications, not applicable or unspecified (principal); Z37.0 Single live birth; Z3A.39 39 weeks gestation of pregnancy
CPT/HCPCS: 36415; 36430; 51702; 59025; 59409; 80503; 85025; 85027; 85460; 86850; 86870; 86900; 90384; 96372; 96374; 99211; J2270; J2405; J2550; J2590; J2795; J7120; J7121; J9999